=== PATIENT | male | born 1975 ===

== ENCOUNTER 2021-12-16 08:22 | Emergency (ER) | payer BC, SELFPAY ==
[2021-12-16 08:34] VITALS: BP 149/100; PULSE 70; RESP 18; TEMP 36.4; O2SAT 97; BMI 24.4
--- NOTE | 2021-12-16 08:42 | CRLHL7_ITS ---
For Patients: As a result of the Century Cures Act, medical imaging exams and procedure reports are released immediately into your electronic medical record. You may view this report before your referring provider. If you have questions, please contact your health care provider. INDICATION: LLQ PAIN HISTORY: Left lower quadrant abdominal pain. COMPARISON: None. TECHNIQUE: CT of the abdomen and pelvis. 89 cc of Isovue-370 IV. Coronal/sagittal reconstruction images. FINDINGS: Lung bases: There is no pleural or pericardial effusion. The heart size is normal. The lung bases demonstrate a small sliding-type hiatal hernia. There is no basilar pneumothorax. No suspicious pulmonary nodule in either lung base. Abdomen/pelvis: The liver morphology is normal. There is no solid hepatic mass or perihepatic ascites. No inflammatory changes adjacent to the gallbladder. Spleen size is normal. Calcified splenic granulomas are noted. No adrenal mass. No pancreatic mass or glandular atrophy. There is mild left hydronephrosis and hydroureter. 2 mm stone in the left kidney in image 50, series 2. There is a stone present at the left UVJ. This is seen on image 134, series 2. This measures 2 mm. No additional urolith is identified. The prostate and urinary bladder otherwise normal. There is no mural thickening in the small bowel or colon. No perienteric edema. No transition point. No evidence for appendicitis. No inguinal or pelvic sidewall lymphadenopathy. The retroperitoneum and gastrohepatic ligament are normal. Visceral artery branches are patent. IVC is patent. The bone windows demonstrate no suspicious bone lesions. Vertebral body heights are maintained on sagittal reconstruction images. IMPRESSION: 1. 2 mm stone at the left UVJ, with mild left hydronephrosis/hydroureter. 2. No additional acute findings are demonstrated. 3. Report called to Dr. Matias, ED, 12/16/21, 1049 am. Dictated by Galileo Cruz MD @ 12/16/2021 10:49:29 AM Please note that all CT scans at this facility use dose modulation, iterative reconstruction, and/or weight-based dosing when appropriate to reduce radiation dose to as low as reasonably achievable. Dictated by: Galileo Cruz MD @ 12/16/2021 10:49:37 (Electronically Signed)
--- NOTE | 2021-12-16 08:43 | ED.GENADULT ---
HPI - General Adult General Chief complaint: Abdominal Pain Stated complaint: VOMITTING/ABDOMINAL PAIN Time Seen by Provider: 12/16/21 08:32 History of Present Illness HPI narrative: This 46-year-old male comes in reporting left lower quadrant abdominal pain that began last evening. He states that it is a constant pain. He has nausea with vomiting. He does not report any fevers. He states the pain is 9/10 in severity. He did have some marijuana last evening. He does not report any altered bowel function or blood in the toilet. He states that he did take a laxative thinking that this may help his symptoms. He has not had any results from that treatment yet. Related Data Home Medications Medication Instructions Recorded Confirmed alprazolam 0.25 mg tablet mg 12/16/21 bupropion HCl 150 mg 24 hr tablet, mg PO 12/16/21 extended release Previous Rx's Medication Instructions Recorded hydrocodone 5 mg-acetaminophen 325 1 tab PO Q4-6H PRN pain #15 tabs 12/16/21 mg tablet ketorolac 10 mg tablet 10 mg PO Q8H 5 days #15 tabs 12/16/21 Allergies Allergy/AdvReac Type Severity Reaction Status Date / Time No Known Drug Allergies Allergy Verified 12/16/21 08:34 Review of Systems Status of ROS: Reports: 10 or more systems reviewed and unremarkable except as noted in History and below Narrative: Constitutional: No fevers, no weight gain or loss. Eyes: No discharge. No vision changes. HENT: No congestion, no sore throat, no ear pain. Cardiovascular: No chest pain, no palpitations. Respiratory: No shortness of breath, no wheezes, no cough. Gastrointestinal: No diarrhea. Left lower quadrant abdominal pain with nausea and vomiting. Genitourinary: No dysuria, no hematuria. Musculoskeletal: Normal range of motion. Skin: No rashes, no pruritis. Neurological: No dizziness, weakness, sensory change, speech change. Endo/Heme/Allergies: No bruising or bleeding. No polydipsia. Pysch: no suicidality, no anxiety, no insomnia. All other systems reviewed and are negative. PFSH PFSH Social History Smoking Status: Unknown if ever smoked Do you use any of these nicotine containing products: None How often do you have a drink containing alcohol: 2-4 times a month How often do you have six or more drinks on one occasion: Never AUDIT-C Alcohol total score: 2 Non-prescribed substance use: marijuana (any form) Exam Narrative: Exam Narrative: Constitutional: Well-developed, well-nourished, no acute distress. HEENT: Normocephalic, atraumatic. Neck: Normal range of motion. Nontender. Supple. Heart: Regular. No murmurs. Normal rate. Intact distal pulses. Lungs: Clear to auscultation. No chest discomfort. No wheezes, rhonchi, or rales. Abdomen: Normal bowel sounds. Tenderness in the left lower quadrant. No rebound tenderness. Genitalia: Deferred. Back: No midline tenderness. Normal range of motion. Extremities: Normal range of motion. No injury. Skin: Intact. No rash. Warm. No erythema or pallor. Neurologic: No altered sensation. No weakness. Alert and oriented. Psychiatric: No suicidality. No anxiety or depression. No insomnia. Nursing notes and vitals signs are reviewed. Const: Vital Signs, click to edit/add: Vital Signs - 24 hr 12/16/21 08:34 Temperature 97.6 F Pulse Rate [Left P ulse Oximeter] 70 Respiratory Rate 18 Blood Pressure [Le ft Upper Arm] 149/100 H Pulse Oximetry 97 Oxygen Delivery Me thod Room Air Course Vital Signs Vital signs: Initial Vital Signs Temperature 97.6 F 12/16/21 08:34 Temperature Source Temporal Artery Scan 12/16/21 08:34 Pulse Rate 70 12/16/21 08:34 Respiratory Rate 18 12/16/21 08:34 Blood Pressure 149/100 H 12/16/21 08:34 Blood Pressure Mean 116 12/16/21 08:34 Blood Pressure Position Sitting 12/16/21 08:34 Pulse Oximetry 97 12/16/21 08:34 Oxygen Delivery Method 12/16/21 08:34 Vital Signs Temperature 97.6 F 12/16/21 08:34 Pulse Rate 70 12/16/21 08:34 Respiratory Rate 18 12/16/21 08:34 Blood Pressure 149/100 H 12/16/21 08:34 Pulse Oximetry 97 12/16/21 08:34 Oxygen Delivery Method 12/16/21 08:34 Temperature 97.6 F 12/16/21 08:34 Pulse Rate 70 12/16/21 08:34 Respiratory Rate 18 12/16/21 08:34 Blood Pressure 149/100 H 12/16/21 08:34 Pulse Oximetry 97 12/16/21 08:34 Oxygen Delivery Method 12/16/21 08:34 Medical Decision Making MDM Narrative Medical decision making narrative: This patient comes in with left lower quadrant abdominal pain. He was rather uncomfortable. An IV was established where he received a L of normal saline, 0.5 mg of Dilaudid, and 4 mg of Zofran. This brought great relief to his symptoms. CT scan of the abdomen and pelvis was performed and returns with evidence of a 2 mm stone at the left ureterovesical junction. These results are communicated with the patient along with instructions regarding kidney stones. He is okay to be discharged home and is prescribed Toradol and [place] for additional relief as needed. Lab Data Labs: Lab Results 12/16/21 12/16/21 Range/Units 08:50 08:50 WBC 6.97 (4.50-11.00) K/uL RBC 5.34 (4.30-5.90) m/uL Hgb 15.8 (13.5-17.5) gm/dL Hct 46.5 (37.0-53.0) % MCV 87 (80-100) fL MCH 30 (26-34) pg MCHC 34 (32-36) gm/dL RDW Coeff of Yg 11.2 L (11.5-15.5) % Plt Count 193 (140-440) K/uL Neut % (Auto) 88.9 H (42.0-72.0) % Lymph % (Auto) 6.9 L (20-44) % [place] % (Auto) 3.3 (0.0-11.0) % Eos % (Auto) 0.4 (0.0-7.0) % Baso % (Auto) 0.4 (0.0-3.0) % Neut # (Auto) 6.20 (1.7-7.0) K/uL Lymph # (Auto) 0.50 L (0.90-2.90) K/uL [place] # (Auto) 0.20 (0.00-0.90) K/UL Eos # (Auto) 0.03 (0.00-0.50) K/uL Baso # (Auto) 0.03 (0.00-0.30) K/uL Abs Immat Gran (auto) 0.01 (0.00-0.30) K/uL Sodium 140 (135-149) mmol/L Potassium 4.1 (3.6-5.1) mmol/L Chloride 107 (96-114) mmol/L Carbon Dioxide 28 (20-32) mmol/L BUN 9 (5-24) mg/dL Creatinine 1.2 (0.5-1.5) mg/dL Estimated Creat Clear 83.53 Estimated GFR 75 ml/min Glucose 161 H (60-115) mg/dL Calcium 9.1 (8.4-10.6) mg/dL Imaging Data CT scan - abdomen: Radiologist's impression: 1. 2 mm stone at the left UVJ, with mild left hydronephrosis/hydroureter. 2. No additional acute findings are demonstrated. Discharge Plan Discharge Clinical Impression: Calculus of kidney Patient Disposition: Home, Self-Care Condition: Improved Instructions: Kidney Stones (ED) Additional Instructions: Take medication as needed and indicated. Follow up with MD or return if recurrent or worsening symptoms happen. Prescriptions: New hydrocodone-acetaminophen 5-325 mg tablet 1 tab PO Q4-6H PRN (Reason: pain) Qty: 15 0RF ketorolac 10 mg tablet 10 mg PO Q8H 5 Days Qty: 15 0RF No Action alprazolam 0.25 mg tablet Label Comments: TAKE 1 TABLET BY MOUTH THREE TIMES DAILY bupropion HCl 150 mg tablet extended release 24 hr PO Label Comments: TAKE 1 TABLET BY MOUTH ONCE DAILY Follow Up/Referrals: Provider,Not a Local [Primary Care Provider] - Stand Alone Forms: [employer] Info Instructions
[2021-12-16 09:00] VITALS: BP 137/81; PULSE 51; RESP 18; O2SAT 99
[2021-12-16] MEDS: HYDROmorphone 0.5 mg/0.5 ml inj IVP (09:01)
[2021-12-16] MEDS: 0.9 % SODIUM CHLORIDE 1000 ml 1,000 ML IV (09:02)
[2021-12-16] MEDS: ONDANSETRON 2 MG/ML inj 4 MG IVP (09:02)
[2021-12-16 09:16] LABS: Chloride* 107 mmol/L (96-114); Potassium* 4.1 mmol/L (3.6-5.1); Sodium* 140 mmol/L (135-149)
[2021-12-16 09:19] LABS: Blood Urea Nitrogen* 9 mg/dL (5-24); Carbon Dioxide* 28 mmol/L (20-32); Creatinine* 1.2 mg/dL (0.5-1.5); Est. Creatinine Clearance* 83.53; Estimated Glomerular Filt Rate 75 ml/min; Glucose* 161 mg/dL (60-115)
[2021-12-16 09:20] LABS: Calcium* 9.1 mg/dL (8.4-10.6)
[2021-12-16 09:32] LABS: Basophils Absolute Auto 0.03 K/uL (0.00-0.30); Basophils Percent Auto 0.4 % (0.0-3.0); Eosinophils Absolute Auto 0.03 K/uL (0.00-0.50); Eosinophils Percent Auto 0.4 % (0.0-7.0); Hematocrit 46.5 % (37.0-53.0); Hemoglobin* 15.8 gm/dL (13.5-17.5); Immature Granulocytes Abs Auto 0.01 K/uL (0.00-0.30); Lymphocytes Percent Auto 6.9 % (20-44); Mean Corpuscular HGB Conc 34 gm/dL (32-36); Mean Corpuscular Hemoglobin 30 pg (26-34); Mean Corpuscular Volume 87 fL (80-100); Monocytes Percent Auto 3.3 % (0.0-11.0); Neutrophils Percent Auto 88.9 % (42.0-72.0); Platelet Count* 193 K/uL (140-440); RDW Coefficient of Variation % 11.2 % (11.5-15.5); Red Blood Count 5.34 m/uL (4.30-5.90); White Blood Count* 6.97 K/uL (4.50-11.00)
[2021-12-16 09:34] LABS: Slide Review Reflex No
[2021-12-16 10:00] VITALS: BP 127/70; PULSE 53; RESP 18; O2SAT 96
[2021-12-16 10:30] VITALS: BP 129/74; PULSE 58; RESP 18; O2SAT 97
[2021-12-16 11:00] VITALS: BP 129/77; PULSE 45; RESP 18; O2SAT 99
== END 2021-12-16 12:00 | disposition home or self-care (01) ==
PROVIDERS: Emergency Provider Emergency Medicine Emergency Medical Services
DX: N20.0 Calculus of kidney (principal)
CPT/HCPCS: 36415; 74177; 80048; 85025; 96374; 96375; 99284; J1170; J2405; J7030; Q9967

== ENCOUNTER 2021-12-21 08:33 | Emergency (ER) | payer BC, SELFPAY ==
[2021-12-21 08:51] VITALS: BP 121/77; PULSE 58; RESP 18; TEMP 36.3; O2SAT 96; BMI 24.4
--- NOTE | 2021-12-21 09:18 | ED_ITS ---
HPI - General Adult General Time Seen by Provider: 09:18 Date Seen: 12/21/21 Chief complaint: Nausea/Vomiting Stated complaint: Nausea,hasn't passed kidney stone Time Seen by Provider: 12/21/21 09:12 Source: patient Mode of arrival: ambulatory Limitations: no limitations History of Present Illness HPI narrative: Patient is returning to the ER with a known kidney stone that was 2 mm and at the left ureterovesicular junction. Symptoms started on the evening of December 15 and was seen in the ER on 12/16. He actually was feeling better yesterday and did not take medicine. He had Toradol and Vicodin at home to take. He has not noted any fevers, when he awoke this morning though he had some lower abdominal discomfort and was nauseated again. Again no fevers or chills. No dysuria. He was not sure if he ever passed the stone. Related Data Home Medications Medication Instructions Recorded Confirmed alprazolam 0.25 mg tablet mg 12/16/21 bupropion HCl 150 mg 24 hr tablet, mg PO 12/16/21 extended release Previous Rx's Medication Instructions Recorded hydrocodone 5 mg-acetaminophen 325 1 tab PO Q4-6H PRN pain #15 tabs 12/16/21 mg tablet ketorolac 10 mg tablet 10 mg PO Q8H 5 days #15 tabs 12/16/21 ketorolac 10 mg tablet 10 mg PO Q6H 5 days #20 tabs 12/21/21 ondansetron 4 mg disintegrating 4 mg PO Q6H PRN nausea and 12/21/21 tablet vomiting #20 tabs Allergies Allergy/AdvReac Type Severity Reaction Status Date / Time No Known Drug Allergies Allergy Verified 12/16/21 08:34 Review of Systems Status of ROS: Reports: 10 or more systems reviewed and unremarkable except as noted in History and below PFSH PFSH Social History Smoking Status: Never smoker Do you use any of these nicotine containing products: Vaping Products Second hand tobacco smoke exposure: No How often do you have a drink containing alcohol: monthly or less How many standard drinks containing alcohol do you have on a typical day: 1 or 2 How often do you have six or more drinks on one occasion: Never AUDIT-C Alcohol total score: 1 Non-prescribed substance use: denies use Exam Const: Vital Signs, click to edit/add: Vital Signs - 24 hr 12/21/21 08:51 12/21/21 10:37 Temperature 97.4 F L Pulse Rate [Left P ulse Oximeter] 58 L Respiratory Rate 18 18 Blood Pressure [Le ft Upper Arm] 121/77 128/86 Pulse Oximetry 96 97 Oxygen Delivery Me thod Room Air Documenting provider has reviewed patient's vital signs: yes Common normals: no apparent distress, average body habitus, oriented x3, no gómez itations, healthy appearing and alert General appearance: cooperative, comfortable and well kempt HENMT: Common normals: normocephalic, head/scalp atraumatic, hearing grossly normal bilaterally and external ears normal Head and scalp: normocephalic and atraumatic External ear: external ears normal Eye: Common normals: PERRL, EOMs intact bilaterally, conjunctivae normal and no scleral icterus Conjunctiva: conjunctiva(e) normal Pupil: PERRL Neck & C-Spine: Common normals: full ROM, no lymphadenopathy, supple, no meningeal signs, no JVD and thyroid normal Thyroid: thyroid normal Resp: Common normals: normal respiratory effort, no retractions, no use of accessory muscles and clear to auscultation bilaterally Auscultation: clear to auscultation bilaterally Cardio: Common normals: no JVD, regular rate, regular rhythm, S1 normal heart sound, S2 normal heart sound, no gallops, no clicks and no murmurs Rate: r egular rate Rhythm: regular rhythm Heart sounds: S1 normal and S2 normal GI: Common normals: Normal to inspection, nondistended, normoactive bowel sounds present, soft to palpation, no hepatosplenomegaly and no masses Palpation: soft, tender (Very mildly tender in the suprapubic area, no rebound/guarding) and no hepatosplenomegaly Extremity: Common normals: normal to inspection, full ROM, normal capillary re fill, no joint enlargement, no clubbing, cyanosis or edema, no calf tenderness and no pedal edema Neuro: Common normals: oriented x3 Sensorium/orientation: alert Meningeal signs: no meningeal signs Psych: Appearance: well ket Course Course Hospital Course: Reviewed with patient and his that we will establish an IV, start some IV fluids and give IV Toradol and Zofran. We will recheck labs including urinalysis. Did discuss that sometimes stone size can be difficult to interpret on CT, it is possibly larger than on initial estimate. There can be complications such as development of urinary tract infection. It is possible stone is now in the bladder and causing some irritation. We will see with initial labs show and need to consider reimaging. They understand and are in agreement. Reevaluation(s) Reevaluation #1: Provided patient a copy of his CT. We did review that there are stones up within the kidneys, recommended fluids to keep urine clear looking, could add lemon to the water. He at this point could have irritation the bladder from stone passing through. We certainly do not see evidence of the stone obstructing any longer. Time: 12:40 Vital Signs Vital signs: Initial Vital Signs Temperature 97.4 F L 12/21/21 08:51 Temperature Source Temporal Artery Scan 12/21/21 08:51 Pulse Rate 58 L 12/21/21 08:51 Pulse Rhythm 12/21/21 08:51 Respiratory Rate 18 12/21/21 08:51 Blood Pressure 121/77 12/21/21 08:51 Blood Pressure Mean 91 12/21/21 08:51 Blood Pressure Position Sitting 12/21/21 08:51 Pulse Oximetry 96 12/21/21 08:51 Vital Signs Temperature 97.4 F L 12/21/21 08:51 Pulse Rate 58 L 12/21/21 08:51 Respiratory Rate 18 12/21/21 08:51 Blood Pressure 121/77 12/21/21 08:51 Pulse Oximetry 96 12/21/21 08:51 Temperature 97.4 F L 12/21/21 08:51 Pulse Rate 58 L 12/21/21 08:51 Respiratory Rate 18 12/21/21 10:37 Blood Pressure 128/86 12/21/21 10:37 Pulse Oximetry 97 12/21/21 10:37 Oxygen Delivery Method 12/21/21 10:37 Medical Decision Making Lab Data Lab results reviewed: Yes I reviewed the patient's lab results Labs: Lab Results 12/21/21 12/21/21 12/21/21 Range/Units 09:30 09:35 09:35 WBC 5.31 (4.50-11.00) K/uL RBC 5.41 (4.30-5.90) m/uL Hgb 15.8 (13.5-17.5) gm/dL Hct 47.3 (37.0-53.0) % MCV 87 (80-100) fL MCH 29 (26-34) pg MCHC 33 (32-36) gm/dL RDW Coeff of Yg 11.2 L (11.5-15.5) % Plt Count 188 (140-440) K/uL Neut % (Auto) 64.6 (42.0-72.0) % Lymph % (Auto) 25.0 (20-44) % [place] % (Auto) 7.2 (0.0-11.0) % Eos % (Auto) 2.1 (0.0-7.0) % Baso % (Auto) 0.9 (0.0-3.0) % Neut # (Auto) 3.43 (1.7-7.0) K/uL Lymph # (Auto) 1.33 (0.90-2.90) K/uL [place] # (Auto) 0.40 (0.00-0.90) K/UL Eos # (Auto) 0.11 (0.00-0.50) K/uL Baso # (Auto) 0.05 (0.00-0.30) K/uL Abs Immat Gran (auto) 0.01 (0.00-0.30) K/uL Sodium 141 (135-149) mmol/L Potassium 4.6 (3.6-5.1) mmol/L Chloride 103 (96-114) mmol/L Carbon Dioxide 29 (20-32) mmol/L BUN 17 (5-24) mg/dL Creatinine 0.9 (0.5-1.5) mg/dL Estimated Creat Clear 111.37 Estimated GFR 106 ml/min Glucose 68 (60-115) mg/dL Lactate (0.5-1.9) mmol/L Calcium 9.2 (8.4-10.6) mg/dL Urine Color Yellow (Yellow) Urine Appearance Clear (Clear) Urine pH 6.0 (5.0-8.5) Ur Specific [place] >= 1.030 (1.000-1.030) Urine Protein Negative (Negative) Urine Glucose (UA) Negative (Negative) Urine Ketones Trace A (Negative) Urine Blood 1+ A (Negative) Urine Nitrite Negative (Negative) Urine Bilirubin Negative (Negative) Urine Urobilinogen 1.0 (0.2-1.0) Ur Leukocyte Esterase Negative (Negative) Urine RBC 0-2 (0-2) Urine WBC 0-2 (0-5) Ur Squamous Epith Cells Few (None-Few) Urine Bacteria None (None) 12/21/21 Range/Units 09:35 WBC (4.50-11.00) K/uL RBC (4.30-5.90) m/uL Hgb (13.5-17.5) gm/dL Hct (37.0-53.0) % MCV (80-100) fL MCH (26-34) pg MCHC (32-36) gm/dL RDW Coeff of Yg (11.5-15.5) % Plt Count (140-440) K/uL Neut % (Auto) (42.0-72.0) % Lymph % (Auto) (20-44) % [place] % (Auto) (0.0-11.0) % Eos % (Auto) (0.0-7.0) % Baso % (Auto) (0.0-3.0) % Neut # (Auto) (1.7-7.0) K/uL Lymph # (Auto) (0.90-2.90) K/uL [place] # (Auto) (0.00-0.90) K/UL Eos # (Auto) (0.00-0.50) K/uL Baso # (Auto) (0.00-0.30) K/uL Abs Immat Gran (auto) (0.00-0.30) K/uL Sodium (135-149) mmol/L Potassium (3.6-5.1) mmol/L Chloride (96-114) mmol/L Carbon Dioxide (20-32) mmol/L BUN (5-24) mg/dL Creatinine (0.5-1.5) mg/dL Estimated Creat Clear Estimated GFR ml/min Glucose (60-115) mg/dL Lactate 1.4 (0.5-1.9) mmol/L Calcium (8.4-10.6) mg/dL Urine Color (Yellow) Urine Appearance (Clear) Urine pH (5.0-8.5) Ur Specific [place] (1.000-1.030) Urine Protein (Negative) Urine Glucose (UA) (Negative) Urine Ketones (Negative) Urine Blood (Negative) Urine Nitrite (Negative) Urine Bilirubin (Negative) Urine Urobilinogen (0.2-1.0) Ur Leukocyte Esterase (Negative) Urine RBC (0-2) Urine WBC (0-5) Ur Squamous Epith Cells (None-Few) Urine Bacteria (None) Imaging Data CT scan - abdomen: Attestation: I have reviewed the pertinent imaging results. Radiologist's impression: Patient: PITER HOFF Facility:?[facility] Patient ID:?[id number] Site Patient ID:?[id number]. Site :?[id number] Study:?CT Abdomen/Pelvis w/o-12/21/2021 11:17:36 AM Ordering Physician:Sabina Card Final Report: Indication: LT kidney stone, inc pain Technique: Noncontrast CT abdomen and pelvis Please note that all CT scans at this facility use dose modulation, iterative reconstruction, and/or weight-based dosing when appropriate to reduce radiation dose to as low as reasonably achievable. Comparison: 12/16/2021 Findings: Mild linear subsegmental atelectasis noted in both lower lobes. No pleural effusion. Noncontrast enhanced liver is normal. Gallbladder is unremarkable. No calcified gallstones or biliary obstruction. Pancreas normal. Calcified granulomas in the spleen. Adrenal glands normal. Small nonobstructing stones left kidney measuring 2-3 millimeters. Punctate 1-2 millimeter stones in the right kidney are also noted without obstruction. The ureters are clear bilaterally. Interval clearing of previously noted left UVJ stone. No bowel obstruction or free intraperitoneal air. Mild sigmoid diverticulosis. No abscess. The appendix is normal. Osseous structures are normal. No fracture. Impression: Punctate nonobstructing stones within each kidney. Interval clearing of previously noted left UVJ stone. Please note that all CT scans at this facility use dose modulation, iterative reconstruction, and/or weight-based dosing when appropriate to reduce radiation dose to as low as reasonably achievable. Dictated by Cordell Ardon MD @ 12/21/2021 11:56:23 AM (Electronic Signature) Critical Care Time Critical Care Time Critical Care Time: No Discharge Plan Discharge Clinical Impression: Bilateral nephrolithiasis, Nausea Condition: Stable Instructions: Kidney Stones (ED), Renal Colic (ED) Additional Instructions: Push fluids for clear looking urine, can add lemon to water to help in prevention of kidney stones. Can use Toradol if needed for pain control, Zofran for nausea. If your symptoms are not improving over the next couple days, do need to seek re-evaluation. If at any point you develop severe abdominal pain, have associated vomiting or fever with it, do need to be seen in the ER. Activity Level: Activity as Tolerated Prescriptions: New ondansetron 4 mg tablet,disintegrating 4 mg PO Q6H PRN (Reason: nausea and vomiting) Qty: 20 0RF ketorolac 10 mg tablet 10 mg PO Q6H 5 Days Qty: 20 0RF No Action alprazolam 0.25 mg tablet Label Comments: TAKE 1 TABLET BY MOUTH THREE TIMES DAILY bupropion HCl 150 mg tablet extended release 24 hr PO Label Comments: TAKE 1 TABLET BY MOUTH ONCE DAILY hydrocodone-acetaminophen 5-325 mg tablet 1 tab PO Q4-6H PRN (Reason: pain) Qty: 15 0RF ketorolac 10 mg tablet 10 mg PO Q8H 5 Days Qty: 15 0RF Follow Up/Referrals: Provider,Not a Local [Primary Care Provider] - Stand Alone Forms: [facility] Info Instructions
[2021-12-21 09:40] LABS: Appearance Urine Clear (Clear); Bilirubin Urine Negative (Negative); Blood Urine 1+ (Negative); Color Urine Yellow (Yellow); Glucose Urine Negative (Negative); Ketones Urine Trace (Negative); Leukocyte Esterase Urine Negative (Negative); Nitrite Urine Negative (Negative); Protein Urine Negative (Negative); Specific Gravity Urine >= 1.030 (1.000-1.030)
[2021-12-21] MEDS: KETOROLAC 30 MG/ML inj IVP (09:41)
[2021-12-21] MEDS: 0.9 % SODIUM CHLORIDE 1000 ml 1,000 ML IV (09:43)
[2021-12-21] MEDS: ONDANSETRON 2 MG/ML inj 4 MG IVP (09:44)
[2021-12-21 09:47] LABS: RBC Urine 0-2 (0-2); Squamous Epithelial Cell Urine Few (None-Few); WBC Urine 0-2 (0-5)
[2021-12-21 09:53] LABS: Lactate* 1.4 mmol/L (0.5-1.9)
[2021-12-21 09:54] LABS: Basophils Absolute Auto 0.05 K/uL (0.00-0.30); Basophils Percent Auto 0.9 % (0.0-3.0); Eosinophils Absolute Auto 0.11 K/uL (0.00-0.50); Eosinophils Percent Auto 2.1 % (0.0-7.0); Hematocrit 47.3 % (37.0-53.0); Hemoglobin* 15.8 gm/dL (13.5-17.5); Immature Granulocytes Abs Auto 0.01 K/uL (0.00-0.30); Lymphocytes Absolute Auto 1.33 K/uL (0.90-2.90); Mean Corpuscular HGB Conc 33 gm/dL (32-36); Mean Corpuscular Hemoglobin 29 pg (26-34); Mean Corpuscular Volume 87 fL (80-100); Monocytes Percent Auto 7.2 % (0.0-11.0); Neutrophils Absolute Auto 3.43 K/uL (1.7-7.0); Neutrophils Percent Auto 64.6 % (42.0-72.0); Platelet Count* 188 K/uL (140-440); RDW Coefficient of Variation % 11.2 % (11.5-15.5); Red Blood Count 5.41 m/uL (4.30-5.90); White Blood Count* 5.31 K/uL (4.50-11.00)
[2021-12-21 09:55] LABS: Slide Review Reflex No
[2021-12-21 10:08] LABS: Chloride* 103 mmol/L (96-114)
[2021-12-21 10:09] LABS: Potassium* 4.6 mmol/L (3.6-5.1); Sodium* 141 mmol/L (135-149)
[2021-12-21 10:11] LABS: Creatinine* 0.9 mg/dL (0.5-1.5); Est. Creatinine Clearance* 111.37; Estimated Glomerular Filt Rate 106 ml/min
[2021-12-21 10:12] LABS: Blood Urea Nitrogen* 17 mg/dL (5-24); Calcium* 9.2 mg/dL (8.4-10.6); Carbon Dioxide* 29 mmol/L (20-32); Glucose* 68 mg/dL (60-115)
--- NOTE | 2021-12-21 10:32 | CRLHL7_ITS ---
For Patients: As a result of the Century Cures Act, medical imaging exams and procedure reports are released immediately into your electronic medical record. You may view this report before your referring provider. If you have questions, please contact your health care provider. Indication: LT kidney stone, inc pain Technique: Noncontrast CT abdomen and pelvis Please note that all CT scans at this facility use dose modulation, iterative reconstruction, and/or weight-based dosing when appropriate to reduce radiation dose to as low as reasonably achievable. Comparison: 12/16/2021 Findings: Mild linear subsegmental atelectasis noted in both lower lobes. No pleural effusion. Noncontrast enhanced liver is normal. Gallbladder is unremarkable. No calcified gallstones or biliary obstruction. Pancreas normal. Calcified granulomas in the spleen. Adrenal glands normal. Small nonobstructing stones left kidney measuring 2-3 millimeters. Punctate 1-2 millimeter stones in the right kidney are also noted without obstruction. The ureters are clear bilaterally. Interval clearing of previously noted left UVJ stone. No bowel obstruction or free intraperitoneal air. Mild sigmoid diverticulosis. No abscess. The appendix is normal. Osseous structures are normal. No fracture. Impression: Punctate nonobstructing stones within each kidney. Interval clearing of previously noted left UVJ stone. Please note that all CT scans at this facility use dose modulation, iterative reconstruction, and/or weight-based dosing when appropriate to reduce radiation dose to as low as reasonably achievable. Dictated by Cordell Ardon MD @ 12/21/2021 11:56:23 AM (Electronically Signed)
[2021-12-21 10:37] VITALS: BP 128/86; RESP 18; O2SAT 97
[2021-12-21 13:13] VITALS: BP 128/89; PULSE 57; RESP 16; TEMP 36.4; O2SAT 95
== END 2021-12-21 13:15 | disposition home or self-care (01) ==
PROVIDERS: Emergency Provider Family Medicine
DX: N20.0 Calculus of kidney (principal)
CPT/HCPCS: 36415; 74176; 80048; 81001; 83605; 85025; 96374; 96375; 99284; J1885; J2405; J7030

== ENCOUNTER 2022-05-16 07:29 | Emergency (ER) | payer BC, SELFPAY ==
[2022-05-16 07:38] VITALS: BP 100/69; PULSE 73; RESP 18; TEMP 36.7; O2SAT 98; BMI 25.1
--- NOTE | 2022-05-16 07:42 | CRLHL7_ITS ---
For Patients: As a result of the 21st Century Cures Act, medical imaging exams and procedure reports are released immediately into your electronic medical record. You may view this report before your referring provider. If you have questions, please contact your health care provider. INDICATION: Lower abdominal pain with history of urolithiasis. COMPARISON: December 21, 2021 TECHNIQUE: CT examination of the abdomen and pelvis was performed without intravenous contrast. Thin section axial images were obtained from the lung bases through the pubic symphysis. Oral contrast was not administered. Please note that all CT scans at this facility use dose modulation, iterative reconstruction, and/or weight-based dosing when appropriate to reduce radiation dose to as low as reasonably achievable. FINDINGS: LUNG BASES: The lung bases are unremarkable.The heart size is normal and the lung bases. There is a small hiatal hernia LIVER/BILIARY SYSTEM:The liver is normal in size and configuration given the lack of intravenous contrast. There is no visible focal mass and there is no intra- or extra hepatic biliary ductal dilatation.The gall bladder appears normal. ADRENALS: Normal non-contrast appearance KIDNEYS, URETERS and BLADDER:The kidneys are normal in size. Incidental left-sided peripelvic sinus lymphatics cysts. There are intrarenal calculi bilaterally. However, there is no hydronephrosis or hydroureter or calculus within the course of either ureter or within the bladder. Multiple lower abdominal and pelvic calcifications are noted but none of them are within the urinary system and were largely present previously. SPLEEN:Granulomatous calcification PANCREAS: Normal non-contrast appearance. RETROPERITONEUM and MESENTERY: There is no mass, adenopathy or aortic aneurysm. GASTROINTESTINAL SYSTEM: There is no evidence of diverticulitis, colitis, mechanical obstruction, or appendicitis. The small bowel as visualized appears normal.Fecal retention. Scattered diverticulosis. No acute appearing GI finding. PELVIS: No mass, adenopathy or free fluid. OSSEOUS STRUCTURES and ABDOMINAL WALL: There is an age-appropriate appearance of the osseous structures.Very small fat containing umbilical hernia OTHER: No free fluid or free air. IMPRESSION: There is bilateral urolithiasis but there is no indication of acute her current obstructive uropathy. No specific visible cause for acute pain on the current examination. Please note that all CT scans at this facility use dose modulation, iterative reconstruction, and/or weight-based dosing when appropriate to reduce radiation dose to as low as reasonably achievable. Dictated by Valente Obregon MD @ 05/16/2022 8:54:32 AM (Electronically Signed)
--- NOTE | 2022-05-16 07:43 | ED_ITS ---
HPI - Abdominal Pain General Date Seen: 05/16/22 <Gregory Keys MD - Last Filed: 05/16/22 09:45> Chief Complaint: Abdominal Pain <Gregory Keys MD - Last Filed: 05/16/22 09:45> Stated Complaint: Possible kidney stones <Gregory Keys MD - Last Filed: 05/16/22 09:45> Time Seen by Provider: 05/16/22 07:41 <Gregory Keys MD - Last Filed: 05/16/22 09:45> Source: patient and family <Gregory Keys MD - Last Filed: 05/16/22 09:45> Mode of arrival: ambulatory <Gregory Keys MD - Last Filed: 05/16/22 09:45> Limitations: no limitations <Gregory Keys MD - Last Filed: 05/16/22 09:45> History of Present Illness HPI narrative: patient is a 39-year-old gentleman who presents here with a 2-3 day history of lower abdominal pain, sweatiness, couple episodes of diarrhea. He says this is somewhat characteristic of his previous bout with the kidney stones, he has never had back pain associated with this, no documented fever, he does note overall he feels block, there is no history of sore throat coughing, chest pain, rashes, he is immunized for COVID with all the immunizations, but is not immunized for influenza. Denies dysuria frequency, no recent travel history, did really take any me dications at home, presents here with his . Does have a history of the previous urolithiasis, he was able to pass this on his own, history of also inguinal hernia repair with mesh. <Gregory Keys MD - Last Filed: 05/16/22 09:45> MD elicited complaint: abdominal pain <Gregory Keys MD - Last Filed: 05/16/22 09:45> Pertinent past history: kidney stones <Gregory Keys MD - Last Filed: 05/16/22 09:45> Quality: cramping, stabbing and aching <Gregory Keys MD - Last Filed: 05/16/22 09:45> Radiation: none <Gregory Keys MD - Last Filed: 05/16/22 09:45> Migration to: periumbilical <Gregory Keys MD - Last Filed: 05/16/22 09:45> Exacerbating factors: eating <Gregory Keys MD - Last Filed: 05/16/22 09:45> Relieving factors: nothing <Gregory Keys MD - Last Filed: 05/16/22 09:45> Context: history of similar episodes <Gregory Keys MD - Last Filed: 05/16/22 09:45> Associated symptoms: nausea and diarrhea <Gregory Keys MD - Last Filed: 05/16/22 09:45> Related Data Home Medications: Home Medications Medication Instructions Recorded Confirmed alprazolam 0.25 mg tablet mg 12/16/21 bupropion HCl 150 mg 24 hr tablet, mg PO 12/16/21 extended release Previous Rx's Medication Instructions Recorded hydrocodone 5 mg-acetaminophen 325 1 tab PO Q4-6H PRN pain #15 tabs 12/16/21 mg tablet ketorolac 10 mg tablet 10 mg PO Q8H 5 days #15 tabs 12/16/21 ketorolac 10 mg tablet 10 mg PO Q6H 5 days #20 tabs 12/21/21 ondansetron 4 mg disintegrating 4 mg PO Q6H PRN nausea and 12/21/21 tablet vomiting #20 tabs <Gregory Keys MD - Last Filed: 05/16/22 09:45> Allergies/Adverse Reactions: Allergies Allergy/AdvReac Type Severity Reaction Status Date / Time No Known Drug Allergies Allergy Verified 12/16/21 08:34 <Gregory Keys MD - Last Filed: 05/16/22 09:45> Review of Systems Status of ROS Reports: 10 or more systems reviewed and unremarkable except as noted in History and below <Gregory Keys MD - Last Filed: 05/16/22 09:45> PFSH PFSH Social History: Social History Smoking Status: Never smoker Do you use any of these nicotine containing products: Vaping Products Second hand tobacco smoke exposure: No How often do you have a drink containing alcohol: monthly or less How many standard drinks containing alcohol do you have on a typical day: 1 or 2 How often do you have six or more drinks on one occasion: Never AUDIT-C Alcohol total score: 1 Non-prescribed substance use: denies use <Gregory Keys MD - Last Filed: 05/16/22 09:45> Exam Narrative: Exam Narrative: Patient is seen in room 5, he is accompanied by his , pupils are equal round reactive to light, there is no scleral icterus or redness, TMs are normal oropharynx is normal, neck is supple full range of motion hydration status is normal, his chest is good air entry bilaterally with no wheezing crackles noted, no signs of respiratory distress, and his heart sounds S1-S2 are normal there is no S3-S4 clicks murmurs or gallops, abdomen is scaphoid, he has some mild tenderness noted in his lower abdominal regions left greater than right. And around the periumbilical region there is no masses, no hernias, and no organomegaly. No CVA tenderness, he moves all extremities independently and well. Skin reveals no petechiae or rashes <Gregory Keys MD - Last Filed: 05/16/22 09:45> Const: Vital Signs, click to edit/add: Vital Signs - 24 hr 05/16/22 07:38 Temperature 98.0 F Pulse Rate [Right Pulse Oximeter] 73 Respiratory Rate 18 Blood Pressure [Ri ght Upper Arm] 100/69 Pulse Oximetry 98 Oxygen Delivery Me thod Room Air <Gregory Keys MD - Last Filed: 05/16/22 09:45> Vital Signs, click to edit/add: Vital Signs - 24 hr 05/16/22 07:38 Temperature 98.0 F Pulse Rate [Right Pulse Oximeter] 73 Respiratory Rate 18 Blood Pressure [Ri ght Upper Arm] 100/69 Pulse Oximetry 98 Oxygen Delivery Me thod Room Air <Michele Somers MD - Last Filed: 05/16/22 09:35> Course Course Hospital Course: discussed the patient and his , I think a IV, fluids, CT scan, along with the medications Toradol Zofran and morphine IV, keeping him NPO and looking further into this, I am a little less likely to say that this is really from urolithiasis given his somewhat different presentation but he tells me this was similar to his previous 1. I will sign him over to the oncoming emergency room physician, for further treatment delineation and review of the lab /Radiology tests. <Gregory Keys MD - Last Filed: 05/16/22 09:45> Reevaluation(s) Reevaluation #1: Work up shows chronic non obstructing stones in both kidneys, no hydronephrosis. Labs unremarkable with mild WBCs in urine with contamination also noted. <Michele Somers MD - Last Filed: 05/16/22 09:35> Time: 09:29 <Michele Somers MD - Last Filed: 05/16/22 09:35> Vital Signs Vital signs: Initial Vital Signs Temperature 98.0 F 05/16/22 07:38 Temperature Source Temporal Artery Scan 05/16/22 07:38 Pulse Rate 73 05/16/22 07:38 Respiratory Rate 18 05/16/22 07:38 Blood Pressure 100/69 05/16/22 07:38 Blood Pressure Mean 79 05/16/22 07:38 Blood Pressure Position Sitting 05/16/22 07:38 Pulse Oximetry 98 05/16/22 07:38 Oxygen Delivery Method 05/16/22 07:38 Vital Signs Temperature 98.0 F 05/16/22 07:38 Pulse Rate 73 05/16/22 07:38 Respiratory Rate 18 05/16/22 07:38 Blood Pressure 100/69 05/16/22 07:38 Pulse Oximetry 98 05/16/22 07:38 Oxygen Delivery Method 05/16/22 07:38 Temperature 98.0 F 05/16/22 07:38 Pulse Rate 73 05/16/22 07:38 Respiratory Rate 18 05/16/22 07:38 Blood Pressure 100/69 05/16/22 07:38 Pulse Oximetry 98 05/16/22 07:38 Oxygen Delivery Method 05/16/22 07:38 <Gregory Keys MD - Last Filed: 05/16/22 09:45> Initial Vital Signs Temperature 98.0 F 05/16/22 07:38 Temperature Source Temporal Artery Scan 05/16/22 07:38 Pulse Rate 73 05/16/22 07:38 Respiratory Rate 18 05/16/22 07:38 Blood Pressure 100/69 05/16/22 07:38 Blood Pressure Mean 79 05/16/22 07:38 Blood Pressure Position Sitting 05/16/22 07:38 Pulse Oximetry 98 05/16/22 07:38 Oxygen Delivery Method 05/16/22 07:38 Vital Signs Temperature 98.0 F 05/16/22 07:38 Pulse Rate 73 05/16/22 07:38 Respiratory Rate 18 05/16/22 07:38 Blood Pressure 100/69 05/16/22 07:38 Pulse Oximetry 98 05/16/22 07:38 Oxygen Delivery Method 05/16/22 07:38 Temperature 98.0 F 05/16/22 07:38 Pulse Rate 73 05/16/22 07:38 Respiratory Rate 18 05/16/22 07:38 Blood Pressure 100/69 05/16/22 07:38 Pulse Oximetry 98 05/16/22 07:38 Oxygen Delivery Method 05/16/22 07:38 <Michele Somers MD - Last Filed: 05/16/22 09:35> MDM - Abdominal Pain MDM Narrative Medical decision making narrative: During this evaluation of this patient I considered multiple differential diagnosis is which included the life-threatening such as appendicitis, aortic aneurysm, mesenteric ischemia, bowel perforation, volvulus, and bowel obstruc tion. Other differential diagnosis is include but are not limited to cholecystitis, pancreatitis, hepatitis, gastritis, GERD, diverticulitis, peptic ulcer disease, pyelonephritis/UTI, renal colic/stone, testicular torsion as well as other acute scrotal processes, inflammatory bowel disease, as well as other etiologies <Gregory Keys MD - Last Filed: 05/16/22 09:45> During this evaluation of this patient I considered multiple differential diagnosis is which included the life-threatening such as appendicitis, aortic aneurysm, mesenteric ischemia, bowel perforation, volvulus, and bowel obstruction. Other differential diagnosis is include but are not limited to cholecystitis, pancreatitis, hepatitis, gastritis, GERD, diverticulitis, peptic ulcer disease, pyelonephritis/UTI, renal colic/stone, testicular torsion as well as other acute scrotal processes, inflammatory bowel disease, as well as other etiologies Work up shows chronic appearing stones in both kidneys. WBC's on contaminated UA. RBC's also present. Blood work is reassuring. Pt appears to have acute on chronic abd pain. Reviewed case with pt's and pt. I feel this is a flare of Irritable Bowel Syndrome. Case explained as well as need for follow up. Will treat with Zofran ODT in the short term with follow up in my clinic. <Michele Somers MD - Last Filed: 05/16/22 09:35> Medical Records Attestation: I reviewed the patient's medical records. <Gregory Keys MD - Last Filed: 05/16/22 09:45> Lab Data Labs: Lab Results 05/16/22 05/16/22 05/16/22 Range/Units 07:42 07:43 07:55 WBC 8.77 (4.50-11.00) K/uL RBC 5.88 (4.30-5.90) m/uL Hgb 17.5 (13.5-17.5) gm/dL Hct 50.5 (37.0-53.0) % MCV 86 (80-100) fL MCH 30 (26-34) pg MCHC 35 (32-36) gm/dL RDW Coeff of Yg 10.8 L (11.5-15.5) % Plt Count 171 (140-440) K/uL Neut % (Auto) 86.5 H (42.0-72.0) % Lymph % (Auto) 5.0 L (20-44) % Person % (Auto) 7.9 (0.0-11.0) % Eos % (Auto) 0.3 (0.0-7.0) % Baso % (Auto) 0.2 (0.0-3.0) % Neut # (Auto) 7.60 H (1.7-7.0) K/uL Lymph # (Auto) 0.40 L (0.90-2.90) K/uL Person # (Auto) 0.70 (0.00-0.90) K/UL Eos # (Auto) 0.03 (0.00-0.50) K/uL Baso # (Auto) 0.02 (0.00-0.30) K/uL Sodium (135-149) mmol/L Potassium (3.6-5.1) mmol/L Chloride (96-114) mmol/L Carbon Dioxide (20-32) mmol/L BUN (5-24) mg/dL Creatinine (0.5-1.5) mg/dL Estimated Creat Clear Estimated GFR ml/min Glucose (60-115) mg/dL Calcium (8.4-10.6) mg/dL Total Bilirubin (0.1-1.5) mg/dL Direct Bilirubin (0.0-0.5) mg/dL AST (12-35) U/L ALT (4-50) U/L Alkaline Phosphatase (40-150) U/L C-Reactive Protein (0.5-1.0) mg/dL Total Protein (6.0-8.3) g/dL Albumin (3.3-5.0) g/dL Lipase (23-300) U/L Urine Color Yellow (Yellow) Urine Appearance Clear (Clear) Urine pH 6.5 (5.0-8.5) Ur Specific [place] 1.025 (1.000-1.030) Urine Protein 1+ A (Negative) Urine Glucose (UA) Negative (Negative) Urine Ketones 3+ A (Negative) Urine Blood 2+ A (Negative) Urine Nitrite Negative (Negative) Urine Bilirubin 1+ A (Negative) Urine Urobilinogen 1.0 (0.2-1.0) Ur Leukocyte Esterase Negative (Negative) Urine RBC 0-2 (0-2) Urine WBC 5-10 A (0-5) Ur Squamous Epith Cells Few (None-Few) Amorphous Sediment Moderate A (None) Urine Bacteria None (None) SARS-CoV-2 (PCR) Negative SARS-CoV-2 (Negative) Influenza Type A (PCR) Negative PCR FLU A (Negative) Influenza Type B (PCR) Negative PCR FLU B (Negative) RSV (PCR) Negative PCR RSV (Negative) 05/16/22 05/16/22 Range/Units 07:55 07:55 WBC (4.50-11.00) K/uL RBC (4.30-5.90) m/uL Hgb (13.5-17.5) gm/dL Hct (37.0-53.0) % MCV (80-100) fL MCH (26-34) pg MCHC (32-36) gm/dL RDW Coeff of Yg (11.5-15.5) % Plt Count (140-440) K/uL Neut % (Auto) (42.0-72.0) % Lymph % (Auto) (20-44) % Person % (Auto) (0.0-11.0) % Eos % (Auto) (0.0-7.0) % Baso % (Auto) (0.0-3.0) % Neut # (Auto) (1.7-7.0) K/uL Lymph # (Auto) (0.90-2.90) K/uL Person # (Auto) (0.00-0.90) K/UL Eos # (Auto) (0.00-0.50) K/uL Baso # (Auto) (0.00-0.30) K/uL Sodium 141 (135-149) mmol/L Potassium 4.1 (3.6-5.1) mmol/L Chloride 104 (96-114) mmol/L Carbon Dioxide 25 (20-32) mmol/L BUN 13 (5-24) mg/dL Creatinine 0.8 (0.5-1.5) mg/dL Estimated Creat Clear 123.94 Estimated GFR 109 ml/min Glucose 127 H (60-115) mg/dL Calcium 9.5 (8.4-10.6) mg/dL Total Bilirubin 1.2 (0.1-1.5) mg/dL Direct Bilirubin 0.2 (0.0-0.5) mg/dL AST 28 (12-35) U/L ALT 22 (4-50) U/L Alkaline Phosphatase 66 (40-150) U/L C-Reactive Protein 1.3 H (0.5-1.0) mg/dL Total Protein 8.0 (6.0-8.3) g/dL Albumin 5.1 H (3.3-5.0) g/dL Lipase 119 (23-300) U/L Urine Color (Yellow) Urine Appearance (Clear) Urine pH (5.0-8.5) Ur Specific [place] (1.000-1.030) Urine Protein (Negative) Urine Glucose (UA) (Negative) Urine Ketones (Negative) Urine Blood (Negative) Urine Nitrite (Negative) Urine Bilirubin (Negative) Urine Urobilinogen (0.2-1.0) Ur Leukocyte Esterase (Negative) Urine RBC (0-2) Urine WBC (0-5) Ur Squamous Epith Cells (None-Few) Amorphous Sediment (None) Urine Bacteria (None) SARS-CoV-2 (PCR) (Negative) Influenza Type A (PCR) (Negative) Influenza Type B (PCR) (Negative) RSV (PCR) (Negative) <Gregory Keys MD - Last Filed: 05/16/22 09:45> Lab Results 05/16/22 05/16/22 05/16/22 Range/Units 07:42 07:43 07:55 WBC 8.77 (4.50-11.00) K/uL RBC 5.88 (4.30-5.90) m/uL Hgb 17.5 (13.5-17.5) gm/dL Hct 50.5 (37.0-53.0) % MCV 86 (80-100) fL MCH 30 (26-34) pg MCHC 35 (32-36) gm/dL RDW Coeff of Yg 10.8 L (11.5-15.5) % Plt Count 171 (140-440) K/uL Neut % (Auto) 86.5 H (42.0-72.0) % Lymph % (Auto) 5.0 L (20-44) % Person % (Auto) 7.9 (0.0-11.0) % Eos % (Auto) 0.3 (0.0-7.0) % Baso % (Auto) 0.2 (0.0-3.0) % Neut # (Auto) 7.60 H (1.7-7.0) K/uL Lymph # (Auto) 0.40 L (0.90-2.90) K/uL Person # (Auto) 0.70 (0.00-0.90) K/UL Eos # (Auto) 0.03 (0.00-0.50) K/uL Baso # (Auto) 0.02 (0.00-0.30) K/uL Sodium (135-149) mmol/L Potassium (3.6-5.1) mmol/L Chloride (96-114) mmol/L Carbon Dioxide (20-32) mmol/L BUN (5-24) mg/dL Creatinine (0.5-1.5) mg/dL Estimated Creat Clear Estimated GFR ml/min Glucose (60-115) mg/dL Calcium (8.4-10.6) mg/dL Total Bilirubin (0.1-1.5) mg/dL Direct Bilirubin (0.0-0.5) mg/dL AST (12-35) U/L ALT (4-50) U/L Alkaline Phosphatase (40-150) U/L C-Reactive Protein (0.5-1.0) mg/dL Total Protein (6.0-8.3) g/dL Albumin (3.3-5.0) g/dL Lipase (23-300) U/L Urine Color Yellow (Yellow) Urine Appearance Clear (Clear) Urine pH 6.5 (5.0-8.5) Ur Specific [place] 1.025 (1.000-1.030) Urine Protein 1+ A (Negative) Urine Glucose (UA) Negative (Negative) Urine Ketones 3+ A (Negative) Urine Blood 2+ A (Negative) Urine Nitrite Negative (Negative) Urine Bilirubin 1+ A (Negative) Urine Urobilinogen 1.0 (0.2-1.0) Ur Leukocyte Esterase Negative (Negative) Urine RBC 0-2 (0-2) Urine WBC 5-10 A (0-5) Ur Squamous Epith Cells Few (None-Few) Amorphous Sediment Moderate A (None) Urine Bacteria None (None) SARS-CoV-2 (PCR) Negative SARS-CoV-2 (Negative) Influenza Type A (PCR) Negative PCR FLU A (Negative) Influenza Type B (PCR) Negative PCR FLU B (Negative) RSV (PCR) Negative PCR RSV (Negative) 05/16/22 05/16/22 Range/Units 07:55 07:55 WBC (4.50-11.00) K/uL RBC (4.30-5.90) m/uL Hgb (13.5-17.5) gm/dL Hct (37.0-53.0) % MCV (80-100) fL MCH (26-34) pg MCHC (32-36) gm/dL RDW Coeff of Yg (11.5-15.5) % Plt Count (140-440) K/uL Neut % (Auto) (42.0-72.0) % Lymph % (Auto) (20-44) % Person % (Auto) (0.0-11.0) % Eos % (Auto) (0.0-7.0) % Baso % (Auto) (0.0-3.0) % Neut # (Auto) (1.7-7.0) K/uL Lymph # (Auto) (0.90-2.90) K/uL Person # (Auto) (0.00-0.90) K/UL Eos # (Auto) (0.00-0.50) K/uL Baso # (Auto) (0.00-0.30) K/uL Sodium 141 (135-149) mmol/L Potassium 4.1 (3.6-5.1) mmol/L Chloride 104 (96-114) mmol/L Carbon Dioxide 25 (20-32) mmol/L BUN 13 (5-24) mg/dL Creatinine 0.8 (0.5-1.5) mg/dL Estimated Creat Clear 123.94 Estimated GFR 109 ml/min Glucose 127 H (60-115) mg/dL Calcium 9.5 (8.4-10.6) mg/dL Total Bilirubin 1.2 (0.1-1.5) mg/dL Direct Bilirubin 0.2 (0.0-0.5) mg/dL AST 28 (12-35) U/L ALT 22 (4-50) U/L Alkaline Phosphatase 66 (40-150) U/L C-Reactive Protein 1.3 H (0.5-1.0) mg/dL Total Protein 8.0 (6.0-8.3) g/dL Albumin 5.1 H (3.3-5.0) g/dL Lipase 119 (23-300) U/L Urine Color (Yellow) Urine Appearance (Clear) Urine pH (5.0-8.5) Ur Specific [place] (1.000-1.030) Urine Protein (Negative) Urine Glucose (UA) (Negative) Urine Ketones (Negative) Urine Blood (Negative) Urine Nitrite (Negative) Urine Bilirubin (Negative) Urine Urobilinogen (0.2-1.0) Ur Leukocyte Esterase (Negative) Urine RBC (0-2) Urine WBC (0-5) Ur Squamous Epith Cells (None-Few) Amorphous Sediment (None) Urine Bacteria (None) SARS-CoV-2 (PCR) (Negative) Influenza Type A (PCR) (Negative) Influenza Type B (PCR) (Negative) RSV (PCR) (Negative) <Michele Somers MD - Last Filed: 05/16/22 09:35> Discharge Plan Discharge Clinical Impression: Abdominal pain <Gregory Keys MD - Last Filed: 05/16/22 09:45> Patient Disposition: Home, Self-Care <Gregory Keys MD - Last Filed: 05/16/22 09:45> Condition: Stable <Gregory Keys MD - Last Filed: 05/16/22 09:45> Instructions: Abdominal Pain (ED) <Gregory Keys MD - Last Filed: 05/16/22 09:45> Additional Instructions: Zofran as needed Follow up with Dr. Somers to begin management of likely Irritable Bowel Syndrome. <Gregory Keys MD - Last Filed: 05/16/22 09:45> Activity Level: No Restrictions <Gregory Keys MD - Last Filed: 05/16/22 09:45> No Restrictions <Michele Somers MD - Last Filed: 05/16/22 09:35> Discharge Diet: Regular <Gregory Keys MD - Last Filed: 05/16/22 09:45> Regular <Michele Somers MD - Last Filed: 05/16/22 09:35> Prescriptions: No Action alprazolam 0.25 mg tablet Label Comments: TAKE 1 TABLET BY MOUTH THREE TIMES DAILY bupropion HCl 150 mg tablet extended release 24 hr PO Label Comments: TAKE 1 TABLET BY MOUTH ONCE DAILY hydrocodone-acetaminophen 5-325 mg tablet 1 tab PO Q4-6H PRN (Reason: pain) Qty: 15 0RF ketorolac 10 mg tablet 10 mg PO Q8H 5 Days Qty: 15 0RF ondansetron 4 mg tablet,disintegrating 4 mg PO Q6H PRN (Reason: nausea and vomiting) Qty: 20 0RF ketorolac 10 mg tablet 10 mg PO Q6H 5 Days Qty: 20 0RF <Gregory Keys MD - Last Filed: 05/16/22 09:45> Follow Up/Referrals: Provider,Not a Local [Primary Care Provider] - <Gregory Keys MD - Last Filed: 05/16/22 09:45> Stand Alone Forms: MyHealth Info Instructions <Gregory Keys MD - Last Filed: 05/16/22 09:45>
[2022-05-16 08:06] LABS: Basophils Absolute Auto 0.02 K/uL (0.00-0.30); Basophils Percent Auto 0.2 % (0.0-3.0); Eosinophils Absolute Auto 0.03 K/uL (0.00-0.50); Eosinophils Percent Auto 0.3 % (0.0-7.0); Hematocrit 50.5 % (37.0-53.0); Hemoglobin* 17.5 gm/dL (13.5-17.5); Immature Granulocytes Abs Auto 0.01 K/uL (0.00-0.30); Immature Granulocytes Pct Auto 0.1 %; Mean Corpuscular HGB Conc 35 gm/dL (32-36); Mean Corpuscular Hemoglobin 30 pg (26-34); Mean Corpuscular Volume 86 fL (80-100); Monocytes Percent Auto 7.9 % (0.0-11.0); Neutrophils Percent Auto 86.5 % (42.0-72.0); Platelet Count* 171 K/uL (140-440); RDW Coefficient of Variation % 10.8 % (11.5-15.5); Red Blood Count 5.88 m/uL (4.30-5.90); White Blood Count* 8.77 K/uL (4.50-11.00)
[2022-05-16 08:07] LABS: Appearance Urine Clear (Clear); Bilirubin Urine 1+ (Negative); Blood Urine 2+ (Negative); Color Urine Yellow (Yellow); Glucose Urine Negative (Negative); Ketones Urine 3+ (Negative); Leukocyte Esterase Urine Negative (Negative); Nitrite Urine Negative (Negative); Protein Urine 1+ (Negative); Specific Gravity Urine 1.025 (1.000-1.030); pH Urine 6.5 (5.0-8.5)
[2022-05-16 08:08] LABS: Slide Review Reflex No
[2022-05-16] MEDS: 0.9 % SODIUM CHLORIDE 1000 ml 1,000 ML IV (08:08)
[2022-05-16] MEDS: ONDANSETRON 2 MG/ML inj 4 MG IVP (08:09)
[2022-05-16] MEDS: MORPHINE 4 MG/ML INJ IVP (08:09)
[2022-05-16] MEDS: KETOROLAC 30 MG/ML inj IVP (08:09)
[2022-05-16 08:18] LABS: Amorphous Sediment Urine Moderate; RBC Urine 0-2 (0-2); Squamous Epithelial Cell Urine Few (None-Few)
[2022-05-16 08:20] LABS: Chloride* 104 mmol/L (96-114)
[2022-05-16 08:21] LABS: Potassium* 4.1 mmol/L (3.6-5.1); Sodium* 141 mmol/L (135-149)
[2022-05-16 08:22] LABS: Albumin* 5.1 g/dL (3.3-5.0)
[2022-05-16 08:23] LABS: Carbon Dioxide* 25 mmol/L (20-32); Creatinine* 0.8 mg/dL (0.5-1.5); Est. Creatinine Clearance* 123.94; Estimated Glomerular Filt Rate 109 ml/min; Lipase* 119 U/L (23-300)
[2022-05-16 08:24] LABS: Blood Urea Nitrogen* 13 mg/dL (5-24); Calcium* 9.5 mg/dL (8.4-10.6); Glucose* 127 mg/dL (60-115)
[2022-05-16 08:25] LABS: Alanine Aminotransferase* 22 U/L (4-50); Alkaline Phosphatase* 66 U/L (40-150); Aspartate Amino Transferase* 28 U/L (12-35); Bilirubin Direct* 0.2 mg/dL (0.0-0.5); Bilirubin Total* 1.2 mg/dL (0.1-1.5)
[2022-05-16 08:27] LABS: C Reactive Protein* 1.3 mg/dL (0.5-1.0)
[2022-05-16 08:47] LABS: PCR FLU A Negative PCR FLU A (Negative); PCR FLU B Negative PCR FLU B (Negative); PCR RSV Negative PCR RSV (Negative)
[2022-05-16 08:49] LABS: SARS PCR* Negative SARS-CoV-2 (Negative)
[2022-05-16 09:00] VITALS: BP 129/77; PULSE 73; RESP 18; O2SAT 95
== END 2022-05-16 10:18 | disposition home or self-care (01) ==
PROVIDERS: Family Medicine; Emergency Provider Internal Medicine
DX: R10.30 Lower abdominal pain, unspecified (principal)
CPT/HCPCS: 36415; 74176; 80048; 80076; 81001; 83690; 85025; 86140; 87086; 87502; 87634; 87635; 96374; 96375; 99284; J1885; J2270; J2405; J7030

== ENCOUNTER 2023-11-05 07:32 | Outpatient (CLI) | payer BC, SELFPAY ==
--- OUTSIDE RECORDS SUMMARY | 2023-11-07 09:41 | XMS_ITS | Clinical Summary ---
Author Organization [employer] [facility] Address [place], [place] [address] Care Team Providers Care Entertainment Production Professional Name Role Phone Melinda Landin Primary Care Provider Allergies Active Allergy Reactions Criticality Noted Date Comments House Dust Runny Nose Low 08/01/2021 Sneezing. Medications Medication Sig Dispensed Refills Start Date End Date Status cetirizine (ZYRTEC) 10 mg tablet Take 1 tablet by mouth once daily. 0 0 Active triamcinolone 0.5% (ARISTOCORT) 0.5 % creamIndications:Other eczema Apply topically to affected area(s) 3 times daily. 15 g 0 Active Additional Information Patient taking differently:TopicalTID PRN, Reported on 08/01/2021 montelukast (SINGULAIR) 10 mg tabletIndications:Allerg ic rhinoconjunctivitis Take 1 tablet by mouth at bedtime. 90 tablet 1 0 Active ALPRAZolam (XANAX) 0.25 mg tabletIndications:Panic attack Take 1 Tablet (0.25 mg) by mouth 3 times daily. 15 Tablet 2 Active QUEtiapine (SEROqueL) 50 mg tabletIndications:Anxiet y disorder, unspecified type Take 1 Tablet (50 mg) by mouth every 6 hours if needed (Anxiety). 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 90 Tablet 2 Active prazosin (MINIPRESS) 1 mg capsuleIndications:Depre ssion with anxiety,Adjustment disorder, unspecified type Take 1 Capsule (1 mg) by mouth 2 times daily. may take BID PRN, once in daytime for anxiety and once at bedtime for sleep. 60 Capsule 2 2 Active Active Problems Problem Noted Date Diagnosed Date Depression with anxiety 05/01/2014 Right inguinal hernia Posttraumatic stress disorder Obsessive-compulsive disorder Sleepwalking Resolved Problems Problem Noted Date Diagnosed Date Resolved Date Somnambulism 08/26/2017 02/11/2019 Immunizations Name Administration Dates Next Due COVID-19 vaccine (Moderna 100mcg/0.5mL) PF, MDV 01/19/2021,12/22/2020 MMR 07/20/1991 Polio Virus, Unspecified 11/21/1976 Td, Preservative Free (age >= 7 Years) 5 Tdap 08/10/2004 Family History Medical History Relation Name Comments Diabetes Brother Diabetes Father Heart Disease Father [place]; CAD Heart Disease Mother Rare heart dis ease (not genetic) Relation Name Status Comments Brother Alive Father (Age 62) Mother (Age 52) Rare heart condition (not genetic) Sister Alive Social History Tobacco Use Types Packs/Day Years Used Date Smoking Tobacco: Never Smokeless Tobacco: Never Tobacco Cessation:Counseling Given: Yes Alcohol Use Standard Drinks/Week Comments No 0 (1 standard drink = 0.6 oz pur e alcohol) PHQ-2 Answer Date Recorded PHQ-2 TOTAL SCORE 4 09/03/2021 Social Connections Answer Date Recorded Frequency of Communication with Friends and Fami ly Not on file 05/12/2021 Financial Resource Strain Answer Date R ecorded Difficulty of Paying Living Expenses Not on file 05/12/2021 Difficulty of Paying Living Expenses Not on file 05/12/2021 Sex and Gender Information Value Date Recorded Sex Assigned at Not on file Gender Identity Not on file Sexual Orientation Not on file Obstetrics History Last Filed Vital Signs Vital Sign Reading Time Taken Comments Blood Pressure 136/84 07/24/2021 2:12 PM CDT Pulse 72 07/24/2021 2:12 PM CDT Temperature 36.5 ??C (97.7 ??F) 02/12/2021 4:45 PM CD T Respiratory Rate 18 07/18/2021 7:42 AM SPORTS DOCTOR Oxygen Saturation 95% 07/18/2021 7:42 AM SPORTS DOCTOR Inhaled Oxygen Concentration - - Weight 79.4 kg (175 lb) 08/01/2021 9:24 AM CDT Height 182.9 cm (6') 08/01/2021 9:24 AM CDT Body Mass Index 23.73 08/01/2021 9:24 AM CDT Plan of Treatment Health Maintenance Due Date Last Done Comments HIV for age 15-65 1989 Hepatitis C screening for age 18-79 1992 BMI (ht and wt on same day) for age 18+ 04/18/2022 04/18/2021, 02/06/2021, 04/20/2020, Additional history exists Depression screening for age 12+ 09/03/2022 09/03/2021, 08/30/2021, 08/21/2021, Additional history exists COVID-19 vaccine series (2022- season) 2023 01/19/2021, 12/22/2020 Influenza for age 9-49 01/11/2024 Lipids for age 45-75 06/29/2024 06/29/2019, 09/01/19 15 Tetanus booster 08/31/2024 08/31/2014, 08/10/2004 Colonoscopy through age 75 05/04/2025 05/04/2015 Tdap Completed 08/10/2004 Pneumococcal series for age 6-64 Aged Out No longer eligible based on patient's age to complete this topic Medical Devices Implanted Type Area Turnstile Collector Device Identifier Shelf Expiration Date Model / Serial / Lot Mesh Inguinal Rt 4x6in 3-D Max - [id number] Implanted:Qty: 1 on 02/12/2021 by Jose Pierce MD at [facility] Right: Inguinal [employer] 07/09/2025 [id number] / / [id number] Procedures Procedure Name Priority Date/Time Associated Diagnosis Comments LIPID PANEL W REFLEX MEASURED LDL Routine 06/29/2019 11:00 AM SPORTS DOCTOR Screening for diabetes mellitus SCAN-COLONOSCOPY 05/04/2015 8:00 AM SPORTS DOCTOR from Last 3 Months or Most Recently Relevant to Health Maintenance Results * LIPID PANEL W REFLEX MEASURED LDL (06/29/2019 11:00 AM SPORTS DOCTOR) CHOLESTEROL,TOTAL 151 100 - 199 mg/dL 06/29/2019 10:19 PM SPORTS DOCTOR [facility] TRIGLYCERIDES 100 <150 mg/dL 06/29/2019 10:19 PM SPORTS DOCTOR [facility] HDL CHOLESTEROL 62 >40 mg/dL 0 10:19 PM SPORTS DOCTOR [facility] NON-HDL CHOLESTEROL 89 <145 mg/dl 06/29/2019 10:19 PM SPORTS DOCTOR [facility] CHOL/HDL RATIO 2.44 <4.50 06/29/2019 10:19 PM SPORTS DOCTOR [facility] LDL CHOLESTEROL 69 <=130 mg/dL 06/29/2019 10:19 PM SPORTS DOCTOR [facility] PROVIDER ORDERED STATUS FASTING 06/29/2019 10:19 PM SPORTS DOCTOR [facility] Blood BLOOD SPECIMEN / Unknown Venipuncture / Unknown 06/29/2019 11:00 AM SPORTS DOCTOR 06/29/2019 11:00 AM SPORTS DOCTOR Melinda GILMORE CHEMISTRY [facility] [address] [place] [address], * SCAN-COLONOSCOPY (05/04/2015 8:00 AM SPORTS DOCTOR) Narrative Transcriptions John Morrison MD - 05/04/2015 7:04 AM CST [facility] [address], [address], [place] [address] Patient Name: Douglas Emery Gender: Male Exam Date: 05/04/2015 Visit Number: [id number] Age: 40 Years Date of : 1975 Attending MD: John Morrison MD Medical Record#: [id number] ----- Procedure: Colonoscopy Indications: Abdominal pain Diarrhea Hematochezia Referring MD: Referral Self Primary MD: No Primary Medications: Intra Procedure Medications: Received MAC sedation per anesthesia provider Complications: Procedure: An examination of the heart and lungs was performed and found to be withinacceptable limits. The patient was therefore deemed a reasonablecandidate for endoscopy and {cons_sedation: Unexpected Value} sedation. The risks and benefits of the procedure were explained to the patient.After obtaining informed consent, MAC sedation was administered peranesthesia provider and I passed the scope without difficulty via the rectum to the ileum. The appendiceal orificeand ic valve were identified. The scope was retroflexed during theexamination The quality of the prep was excellent (Miralax/Gatorade/2tablets Bisacodyl/Magnesium Citrate). This was a complete examination throughout the entire colon. Findings: Anal canal: internal hemorrhoid(s) Distal 15 cm of TI normal Location - ileum. Maneuver - cold biopsyforceps. Random biopsies were taken throughout the colon to rule out microscopiccolitis. The entire colon was normal. Impression: Diarrhea Hematochezia Procedure: Upper GI Endoscopy Indications: Nausea or Vomiting Provider: John Morrison MD Referring MD: Referral Self Primary MD: No Primary Intra Procedure Medications: Received MAC sedation per anesthesia provider Complications: No immediate complications Procedure: An examination of the heart and lungs was performed within acceptablelimits. The patient was therefore deemed a reasonable candidate for andMAC sedation sedation. The risks and benefits were explained to the patient, who appeared tounderstand. After obtaining informed consent, the scope was passed underdirect vision. Throughout the procedure the patient's blood pressure,pulse and oxygen saturations were monitored. The scope was introducedthrough the mouth and advanced to the second portion of duodenum. Findings: Esophagus: Normal esophagus. The z-line is 40 centimeters from the incisors. Top of the gastric foldsis 40 centimeters from the incisors. Stomach: The diaphragm hiatus is at 45 centimeters from the incisors. Normal mucosa. *Stomach Comments: Stomach otherwise normal Duodenum: Normal duodenum. Celiac Sprue biopsies taken. Celiac Sprue biopsies taken. Impression: Nausea and vomiting, unspecified intactability, vo Pathology Results: A: DUODENUM, BIOPSY: 1. Normal small bowel mucosa 2. No histologic evidence of celiac disease or other enteropathy B: ILEUM, TERMINAL, BIOPSY: 1. Normal small bowel mucosa 2. No evidence of active or chronic ileitis C: COLON, RANDOM, BIOPSY: 1. Normal colonic mucosa 2. No evidence of microscopic, active or chronic colitis MICROSCOPIC A: Performed B: Performed C: Performed Electronically signed by: Luiz Milan MD Plan Comments: Recommendation Comments: 1. Await biopsy results. 2. Consider trail of PPI therapy for GERD as cause of UGI symptoms. 3. Will check blood for H. Pylori Ab today. 4. Proceed with planned colonosocpy. Recommendation Comments: 1. High fiber diet, 25-30 grams daily. 2. Await biopsy results. 3. Will schedule a follow up appointment with Dr. Moulton. _Electronically signed by: John Morrison MD 05/04/2015 cc: Referral Self No Primary John Morrison MD OTHER from Last 3 Months or Most Recently Relevant to Health Maintenance Advance Directives * Full Code (Latest Code Status on File) Date Activated Date Inactivated Comments 02/12/2021 1:13 PM 02/12/2021 7:21 PM Question Answer Comments Code Status Discussion: Not Discussed Care Teams Entertainment Production Professional Relationship Specialty [place] [address] [place] [address] PCP - General Family Practice 08/24/14
== END 2023-11-05 07:33 | disposition home or self-care (01) ==
LOC: NFLDREF 11-07 09:40
PROVIDERS: PCP Internal Medicine; Visit Provider Internal Medicine
DX: Z00.00 Encounter for general adult medical examination without abnormal findings (principal); E78.5 Hyperlipidemia, unspecified; Z13.9 Encounter for screening, unspecified
CPT/HCPCS: 80053; 80061

== ENCOUNTER 2023-11-10 08:28 | Outpatient (CLI) | payer BC, SELFPAY ==
--- OUTSIDE RECORDS SUMMARY | 2023-11-12 08:53 | XMS_ITS | Clinical Summary ---
Author Organization [employer] [facility] Address [place], [place] [address] Care Team Providers Care Safe Technician Name Role Phone Melinda Landin Primary Care [...] Diabetes Brother Diabetes Father Heart Disease Father [place]; CAD Heart Disease Mother Rare heart dis [...] T Respiratory Rate 18 07/18/2021 7:42 AM SOLUTION SALES SENIOR EXECUTIVE Oxygen Saturation 95% 07/18/2021 7:42 AM SOLUTION SALES SENIOR EXECUTIVE Inhaled Oxygen Concentration - - Weight 79.4 [...] this topic Medical Devices Implanted Type Area Advertising Strategist Device Identifier Shelf Expiration Date Model / Serial / Lot Mesh Inguinal Rt 4x6in 3-D Max - [id number] Implanted:Qty: 1 on 02/12/2021 by Jose Pierce MD at [facility] Right: Inguinal [employer] 07/09/2025 [id number] / / [id number] Procedures Procedure Name Priority Date/Time Associated Diagnosis Comments LIPID PANEL W REFLEX MEASURED LDL Routine 06/29/2019 11:00 AM SOLUTION SALES SENIOR EXECUTIVE Screening for diabetes mellitus SCAN-COLONOSCOPY 05/04/2015 8:00 AM SOLUTION SALES SENIOR EXECUTIVE from Last 3 Months or Most Recently Relevant to Health Maintenance Results * LIPID PANEL W REFLEX MEASURED LDL (06/29/2019 11:00 AM SOLUTION SALES SENIOR EXECUTIVE) CHOLESTEROL,TOTAL 151 100 - 199 mg/dL 06/29/2019 10:19 PM SOLUTION SALES SENIOR EXECUTIVE [facility] TRIGLYCERIDES 100 <150 mg/dL 06/29/2019 10:19 PM SOLUTION SALES SENIOR EXECUTIVE [facility] HDL CHOLESTEROL 62 >40 mg/dL 0 10:19 PM SOLUTION SALES SENIOR EXECUTIVE [facility] NON-HDL CHOLESTEROL 89 <145 mg/dl 06/29/2019 10:19 PM SOLUTION SALES SENIOR EXECUTIVE [facility] CHOL/HDL RATIO 2.44 <4.50 06/29/2019 10:19 PM SOLUTION SALES SENIOR EXECUTIVE [facility] LDL CHOLESTEROL 69 <=130 mg/dL 06/29/2019 10:19 PM SOLUTION SALES SENIOR EXECUTIVE [facility] PROVIDER ORDERED STATUS FASTING 06/29/2019 10:19 PM SOLUTION SALES SENIOR EXECUTIVE [facility] Blood BLOOD SPECIMEN / Unknown Venipuncture / Unknown 06/29/2019 11:00 AM SOLUTION SALES SENIOR EXECUTIVE 06/29/2019 11:00 AM SOLUTION SALES SENIOR EXECUTIVE Melinda GILMORE CHEMISTRY [facility] [address] [place] [address], * SCAN-COLONOSCOPY (05/04/2015 8:00 AM SOLUTION SALES SENIOR EXECUTIVE) Narrative Transcriptions John Morrison MD - 05/04/2015 7:04 AM CST [facility] [address], [address], [place] [address] Patient Name: Douglas Emery Gender: Male Exam Date: 05/04/2015 Visit Number: [id number] Age: 40 Years Date of : 1975 Attending MD: John Morrison MD Medical Record#: [id number] ----- Procedure: Colonoscopy Indications: Abdominal pain Diarrhea [...] Code Status Discussion: Not Discussed Care Teams Safe Technician Relationship Specialty [place] [address] [place] [address] PCP - General Family Practice 08/24/14
== END 2023-11-10 08:29 | disposition home or self-care (01) ==
LOC: NFLDREF 11-12 08:52
PROVIDERS: PCP Internal Medicine; Visit Provider Internal Medicine
DX: N20.0 Calculus of kidney (principal)
CPT/HCPCS: 87086

== ENCOUNTER 2023-11-18 10:44 | Outpatient (CLI) | payer BC, SELFPAY ==
--- OUTSIDE RECORDS SUMMARY | 2023-11-18 10:48 | XMS_ITS | Clinical Summary ---
Author Organization [employer] [facility] Address [place], [place] [address] Care Team Providers Care Rubber Boots And Shoes Repairer Name Role Phone Melinda Landin Primary Care [...] Diabetes Brother Diabetes Father Heart Disease Father [place]; CAD Heart Disease Mother Rare heart dis [...] T Respiratory Rate 18 07/18/2021 7:42 AM FILLER BLOCK INSERTER REMOVER Oxygen Saturation 95% 07/18/2021 7:42 AM FILLER BLOCK INSERTER REMOVER Inhaled Oxygen Concentration - - Weight 79.4 [...] this topic Medical Devices Implanted Type Area Paper Cone Drying Machine Operator Device Identifier Shelf Expiration Date Model / Serial / Lot Mesh Inguinal Rt 4x6in 3-D Max - [id number] Implanted:Qty: 1 on 02/12/2021 by Jose Pierce MD at [facility] Right: Inguinal [employer] 07/09/2025 [id number] / / [id number] Procedures Procedure Name Priority Date/Time Associated Diagnosis Comments LIPID PANEL W REFLEX MEASURED LDL Routine 06/29/2019 11:00 AM FILLER BLOCK INSERTER REMOVER Screening for diabetes mellitus SCAN-COLONOSCOPY 05/04/2015 8:00 AM FILLER BLOCK INSERTER REMOVER from Last 3 Months or Most Recently Relevant to Health Maintenance Results * LIPID PANEL W REFLEX MEASURED LDL (06/29/2019 11:00 AM FILLER BLOCK INSERTER REMOVER) CHOLESTEROL,TOTAL 151 100 - 199 mg/dL 06/29/2019 10:19 PM FILLER BLOCK INSERTER REMOVER [facility] TRIGLYCERIDES 100 <150 mg/dL 06/29/2019 10:19 PM FILLER BLOCK INSERTER REMOVER [facility] HDL CHOLESTEROL 62 >40 mg/dL 0 10:19 PM FILLER BLOCK INSERTER REMOVER [facility] NON-HDL CHOLESTEROL 89 <145 mg/dl 06/29/2019 10:19 PM FILLER BLOCK INSERTER REMOVER [facility] CHOL/HDL RATIO 2.44 <4.50 06/29/2019 10:19 PM FILLER BLOCK INSERTER REMOVER [facility] LDL CHOLESTEROL 69 <=130 mg/dL 06/29/2019 10:19 PM FILLER BLOCK INSERTER REMOVER [facility] PROVIDER ORDERED STATUS FASTING 06/29/2019 10:19 PM FILLER BLOCK INSERTER REMOVER [facility] Blood BLOOD SPECIMEN / Unknown Venipuncture / Unknown 06/29/2019 11:00 AM FILLER BLOCK INSERTER REMOVER 06/29/2019 11:00 AM FILLER BLOCK INSERTER REMOVER Melinda GILMORE CHEMISTRY [facility] [address] [place] [address], * SCAN-COLONOSCOPY (05/04/2015 8:00 AM FILLER BLOCK INSERTER REMOVER) Narrative Transcriptions John Morrison MD - 05/04/2015 7:04 AM CST [facility] [address], [address], [place] [address] Patient Name: Douglas Emery Gender: Male Exam Date: 05/04/2015 Visit Number: [id number] Age: 40 Years Date of : 1975 Attending MD: John Morrison MD Medical Record#: [id number] ----- Procedure: Colonoscopy Indications: Abdominal pain Diarrhea [...] Code Status Discussion: Not Discussed Care Teams Rubber Boots And Shoes Repairer Relationship Specialty [place] [address] [place] [address] PCP - General Family Practice 08/24/14
--- NOTE | 2023-11-18 11:00 | CRLHL7_ITS ---
For Patients: As a result of the Century Cures Act, medical imaging exams and procedure reports are released immediately into your electronic medical record. You may view this report before your referring provider. If you have questions, please contact your health care provider. INDICATION: Right-sided abdominal pain and history of stones. TECHNIQUE: CT abdomen and pelvis without contrast, stone protocol. COMPARISON: 05/16/[address] FINDINGS: Kidney/ureters: Several tiny nonobstructing stones in both kidneys, mildly increased in number since prior study. No ureteral stone or hydronephrosis. No suspicious renal mass within the limits of a noncontrast exam. Liver/gallbladder/bile ducts: The liver is normal in size, shape and attenuation. Gallbladder is normal without visualized stones or inflammation. No biliary dilatation. Spleen/pancreas/adrenal glands: The spleen, adrenal glands and pancreas are within normal limits. GI tract: The bowel is unremarkable. Normal appendix. Abdominal wall/omentum/peritoneum: No free air or significant free fluid. No mass or inflammation. Lymph nodes: No lymphadenopathy. Pelvis: Unremarkable pelvis. Lower chest: Unremarkable. IMPRESSION: Mildly increased bilateral nephrolithiasis. No obstruction. No acute findings. Please note that all CT scans at this facility use dose modulation, iterative reconstruction, and/or weight-based dosing when appropriate to reduce radiation dose to as low as reasonably achievable. Dictated by Andreas Anthony MD @ 11/19/2023 2:36:11 PM (Electronically Signed)
== END 2023-11-18 10:45 | disposition home or self-care (01) ==
LOC: CT 10:46
PROVIDERS: PCP Internal Medicine; Visit Provider Internal Medicine
DX: R10.9 Unspecified abdominal pain (principal); N20.0 Calculus of kidney
CPT/HCPCS: 74176

== ENCOUNTER 2024-11-17 15:44 | Outpatient (CLI) | payer BC, SELFPAY | END 2024-11-17 15:45 | disposition home or self-care (01) | PROVIDERS: PCP Internal Medicine; Visit Provider Internal Medicine | DX: Z00.00 Encounter for general adult medical examination without abnormal findings (principal); Z12.5 Encounter for screening for malignant neoplasm of prostate | CPT/HCPCS: G0103 ==

== ENCOUNTER 2024-11-19 05:45 | Outpatient (CLI) | payer BC, SELFPAY | END 2024-11-19 05:46 | disposition home or self-care (01) | LOC: NFLDREF 11-22 15:36 | PROVIDERS: PCP Internal Medicine; Referring Provider Internal Medicine; Visit Provider Internal Medicine | DX: K58.9 Irritable bowel syndrome, unspecified (principal) | CPT/HCPCS: 87338 ==

== ENCOUNTER 2025-04-10 11:29 | Emergency (ER) | payer BC, SELFPAY ==
[2025-04-10] VITALS (7 sets, daily range): BP systolic 139–174; BP diastolic 79–92; PULSE 45–56; RESP 18; TEMP 35.9; O2SAT 96–98; BMI 25.8
--- OUTSIDE RECORDS SUMMARY | 2025-04-10 11:32 | XMS_ITS | Clinical Summary ---
Author Organization [employer] Address [facility] [place] [address] Care Team Providers Care Station Detective Name Role Phone Melinda Landin Primary Care Provider Allergies Active Allergy Reactions Criticality Noted Date Comments House Dust Runny Nose Low 08/01/2021 Sneezing. Medications cetirizine (ZYRTEC) 10 mg tablet Take 1 tablet by mouth once daily. 0 06/29/19 20 Active triamcinolone 0.5% (ARISTOCORT) 0.5 % creamIndications:Other eczema Apply topically to affected area(s) 3 times daily. 15 g 06/29/19 20 Active Additional Information Patient taking differently:TopicalTID PRN, Reported on 08/01/2021 montelukast (SINGULAIR) 10 mg tabletIndications:Gabino rgic rhinoconjunctivitis Take 1 tablet by mouth at bedtime. 90 tablet 1 07/01/19 20 Active ALPRAZolam (XANAX) 0.25 mg tabletIndications:Silvina c attack Take 1 Tablet (0.25 mg) by mouth 3 times daily. 15 Tablet 07/21/19 22 Active QUEtiapine (SEROqueL) 50 mg tabletIndications:Anxi ety disorder, unspecified type Take 1 Tablet (50 mg) by mouth every 6 hours if needed (Anxiety). 30 Tablet 2 08/10/19 22 Active buPROPion (WELLBUTRIN XL) 150 mg Extended-Release tabletIndications:Mild episode of recurrent major depressive disorder,JENARO (generalized anxiety disorder) Take 1 Tablet (150 mg) by mouth once daily. 90 Tablet 08/23/19 Active prazosin (MINIPRESS) 1 mg capsuleIndications:Dep ression with anxiety,Adjustment disorder, unspecified type Take 1 Capsule (1 mg) by mouth 2 times daily. may take BID PRN, once in daytime for anxiety and once at bedtime for sleep. 60 Capsule 2 08/23/19 Active Active Problems Problem Noted Date Diagnosed Date Depression with anxiety 05/01/2014 Right inguinal hernia Posttraumatic stress disorder Obsessive-compulsive disorder Sleepwalking Resolved Problems Problem Noted Date Diagnosed Date Resolved Date Somnambulism 08/26/2017 02/11/2019 Immunizations Immunization Administration Dates Next Due COVID-19 vaccine (Moderna 100mcg/0.5mL) PF, MDV 01/19/2021,12/22/2020 MMR 07/20/1991 Polio Virus, Unspecified 11/21/1976 Td, Preservative Free (age >= 7 Years) 5 Tdap 08/10/2004 Family History Medical History Relation Name Comments Diabetes Brother Diabetes Father Heart Disease Father DC; CAD Heart Disease Mother Rare heart dis [...] Recorded Sex Assigned at Not on file Legal Sex Male 8:10 AM DRONE PILOT Gender Identity Not on file Sexual Orientation Not on file 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 Not on file Not on file Not on file Obstetrics History Last Filed Vital Signs Vital Sign Reading Time Taken Comments Blood Pressure 136/84 07/24/2021 2:12 PM CDT Pulse 72 07/24/2021 2:12 PM CDT Temperature 36.5 C (97.7 F) 02/12/2021 4:45 PM CDT Respiratory Rate 18 07/18/2021 7:42 AM DRONE PILOT Oxygen Saturation 95% 07/18/2021 7:42 AM DRONE PILOT Inhaled Oxygen Concentration - - Weight 79.4 kg (175 lb) 08/01/2021 9:24 AM CDT Height 182.9 cm (6') 08/01/2021 9:24 AM CDT Body Mass Index 23.73 08/01/2021 9:24 AM CDT Plan of Treatment Health Maintenance Due Date Last Done Comments HIV for age 15-65 1989 Hepatitis C screening for ag e 18-79 1992 Hepatitis B series for 19+ ( 1 of 3 - 19+ 3-dose series) 1993 BMI (ht and wt on same day) for age 18+ 04/18/2022 04/18/2021, 02/06/2021, 04/20/2020, Additional history exists Depression screening for age 12+ 09/03/2022 09/03/2021, 08/30/2021, 08/21/2021, Additional history exists Pneumococcal series for age 50+ (1 of 1 - PCV) 2024 Zoster (shingles) series for age 50+ (1 of 2) 2024 Lipids for age 45-75 06/29/2024 06/29/2019, 09/01/19 15 Tetanus booster 08/31/2024 08/31/2014, 08/10/2004 COVID-19 vaccine series ( season) 2025 01/19/2021, 12/22/2020 Influenza Vaccine (#1) 2025 Colonoscopy through age 75 05/10/2034 05/10/2024, RSV vaccine for adults or (1 - 1-dose 75+ series) 2049 Medical Devices Implanted Type Area Maintenance And Engineering Manager Device Identifier Shelf Expiration Date Model / Serial / Lot Mesh Inguinal Rt 4x6in 3-D Max - [id number] Implanted:Qty: 1 on 02/12/2021 by Jose Pierce MD at [facility] Right: Inguinal [employer] 07/09/2025 [id number] / / [id number] Procedures Procedure Name Priority Date/Time Associated Diagnosis Comments SCAN-COLONOSCOPY 05/10/2024 8:30 AM DRONE PILOT LIPID PANEL W REFLEX MEASURED LDL Routine 06/29/2019 11:00 AM DRONE PILOT Screening for diabetes mellitus from Last 3 Months or Most Recently Relevant to Health Maintenance Results * SCAN-COLONOSCOPY (05/10/2024 8:30 AM DRONE PILOT) Narrative Procedure Note Teja Griffin MD - 05/10/2024 7:58 AM CST [facility] [address], [address], [place] [id number] Patient Name: Douglas Emery Gender: Male Exam Date: 05/10/2024 Visit Number: [id number] Age: 49 Years Date of : 1975 Attending MD: Teja Griffin MD Medical Record#: [id number] Procedure: Colonoscopy Indications: Colorectal cancer screening Referring MD: Referral Self Primary MD: No Primary Medications: Admitting Medications: 0.9% Normal Saline at [facility] Intra Procedure Medications: Patient received monitored anesthesia care. Complications: No immediate complications Procedure: An examination of the heart and lungs was performed and found to be withinacceptable limits. . The patient was therefore deemed a reasonablecandidate for endoscopy and sedation. The risks and benefits of the procedure were explained to the patient.After obtaining informed consent, the patient received monitoredanesthesia care and I passed the scope without difficulty via the rectum to the ileum. The appendiceal orificeand ic valve were identified. The scope was retroflexed during theexamination The quality of the prep was excellent (Miralax/Gatorade/2tablets Bisacodyl/Magnesium Citrate). This was a complete examination throughout the entire colon. Findings: Normal finding. Location - ileum. Polyp location: cecum. Quantity: 2. Size: 2 mm, 8 mm. Polyp shape:sessile. Maneuver: polypectomy was performed with a cold snare. Removal: complete. Retrieval: complete. Bleeding: none. Polyp location: ascending colon. Quantity: 3. Size: 3 mm, 5 mm, 5 mm.Polyp shape: sessile. Maneuver: polypectomy was performed with a cold snare. Removal: complete. Retrieval: complete. Bleeding: none. On retroflexion, there was a benign-appearing growth originating below thedentate line, suspect hypertrophic anal papilla. Remainder of the exam is normal. Comments: Retroflexion in the right colon was performed. Impression: Colorectal polyp detected on colonoscopy Colon cancer screening Preliminary Plan: The patient and their physician will receive a copy of the pathologyreport as well as pathology-based recommendations for future screening orsurveillance. Comments: If 3 or more polyps were adenomatous, repeat in 3 years. If 1-2polyps were adenomatous, 7 years. Recommendation Comments: I discussed the anal lesion with the patients -suspect hypertrophic anal papilla, overall looked benign to me.. I didoffer a colorectal surgery referal to get a second opinion about that andsee if it needs a biopsy. He has a GI doc in [place] as well I said hecould ask, potentially they could take a second look with anoscopy [facility]. Pathology Results: A: COLON, CECUM, POLYPS: 1. Tubular adenoma (1) and normal colonic mucosa (endoscopically 2polyps) 2. Negative for high grade dysplasia 3. Per the colonoscopy report: a. Polyp sizes: 2 mm and 8 mm b. Resection: Complete c. Retrieval: Complete B: COLON, ASCENDING, POLYPS: 1. Tubular adenomas (2) and normal colonic mucosa (endoscopically3 polyps) 2. Negative for high grade dysplasia 3. Per the colonoscopy report: a. Polyp sizes: 3 mm - 5 mm b. Resection: Complete c. Retrieval: Complete MICROSCOPIC A: Performed B: Performed SPECIAL STAINING/DEEPER A: Deeper B: Deeper Electronically signed by: Uvaldo Caicedo MD Interpreted at [facility], [address] [place] [phone] Orders Instruction(s)/Education: Instruction/Education Timeframe Assessment Colon Cancer Prevention K63.5 Colon Polyps K63.5 Final Plan: Repeat colonoscopy in 3 years. We will attempt to contact you at appropriate intervals via U.S. mail. Wemay not be able to find you or contact you at that time, therefore youshould know that the responsibility for following our recommendation restswith you. If you don't hear from us at the time your procedure is due,please contact our office to schedule an appointment. If your contactinformation should change, please contact our office so that we can updateyour record. _Electronically signed by: Teja Griffin MD 05/10/2024 cc: No Primary us Teja Griffin MD OTHER Final Re sult * LIPID PANEL W REFLEX MEASURED LDL (06/29/2019 11:00 AM DRONE PILOT) CHOLESTEROL,TOTAL 151 100 - 199 mg/dL 06/29/2019 10:19 PM [facility] TRIGLYCERIDES 100 <150 mg/dL 06/29/2019 10:19 PM DRONE PILOT [facility] HDL CHOLESTEROL 62 >40 mg/dL 0 10:19 PM DRONE PILOT [facility] NON-HDL CHOLESTEROL 89 <145 mg/dl 06/29/2019 10:19 PM DRONE PILOT [facility] CHOL/HDL RATIO 2.44 <4.50 06/29/2019 10:19 PM DRONE PILOT [facility] LDL CHOLESTEROL 69 <=130 mg/dL 06/29/2019 10:19 PM DRONE PILOT [facility] PROVIDER ORDERED STATUS FASTING 06/29/2019 10:19 PM DRONE PILOT [facility] Blood BLOOD SPECIMEN / Unknown Venipuncture / Unknown 06/29/2019 11:00 AM DRONE PILOT 06/29/2019 11:00 AM DRONE PILOT us Melinda GILMORE CHEMISTRY Final Result [facility] [address] [place] [address], from Last 3 Months or Most Recently Relevant to Health Maintenance Insurance [facility] Advance Directives * Full Code (Latest Code Status on File) Date Activated Date Inactivated Comments 02/12/2021 1:13 PM 02/12/2021 7:21 PM Question Answer Comments Code Status Discussion: Not Discussed Care Teams Station Detective Relationship Specialty [place] [address] [place] [address] PCP - General Family Practice 08/24/14
--- NOTE | 2025-04-10 11:42 | ED.GENADULT ---
HPI - General Adult General Date Seen: 04/10/25 Chief complaint: Abdominal Pain Stated complaint: nausea, right abdominal pain Time Seen by Provider: 04/10/25 11:33 History of Present Illness HPI narrative: 49-year-old gentleman with a history of kidney stones, also irritable bowel syndrome, eczema presenting to the ER today with left lower quadrant abdominal pain. Of note his chief complaint stated ?right abdominal pain,?, but the patient in fact endorses left-sided pain. Pain is sharp and similar in nature to previous kidney stones. It started while he was shoveling snow. Prior records show an ER visit in May 2022 for the lower abdominal pain ongoing for 2 or 3 days at that time. Diagnosed presumptively with irritable bowel syndrome. CT scan showed intrarenal stones but no obstructing stones. Urinalysis was contaminated and not thought to represent true UTI. He has been healthy and well lately. He presents to the ER today with his , from home, for evaluation of left lower quadrant abdominal pain. He endorses that the pain will come up this morning and initially thought it was probably a pulled muscle from shoveling snow yesterday. However the pain has gotten steadily worse and is coming and going of unclear trigger. It does not really get better or worse if he tries to move her lays still. It just hurts all the time. The pain became so intense it made him nauseous. The pain is very severe in nature and it is the worst pain he has felt in a long time. He is not vomiting but nauseous. He tried to take ibuprofen 400 mg p.o. but is not helped with the pain. No other symptoms. No antecedent fever. No recent diarrhea. Normal urination. No illness yesterday. No known injury. He does have a small red rash on his left lower quadrant which he thinks is because he burned himself with a heating pad this morning. Related Data Home Medications ?Medication ?Instructions ?Recorded ?Confirmed cetirizine 10 mg tablet 10 mg PO DAILY 06/12/22 04/10/25 Previous Rx's ?Medication ?Instructions ?Recorded ondansetron 4 mg disintegrating 4 mg PO Q12H PRN nausea and 11/17/24 tablet vomiting #60 tabs ondansetron HCl 4 mg tablet 4 mg PO Q8H PRN nausea and 04/10/25 vomiting #10 tabs oxycodone 5 mg tablet 5 - 10 mg (1 - 2 x 5 mg) PO Q4H 04/10/25 PRN pain #14 tabs tamsulosin 0.4 mg capsule (Flomax) 0.4 mg PO DAILY #7 caps 04/10/25 Allergies Allergy/AdvReac Type Severity Reaction Status Date / Time No Known Drug Allergies Allergy Verified 11/17/24 15:26 [facility] Medical History (Updated 04/10/25 @ 14:43 by Azar Lainez MD) Healthcare maintenance ?Z00.00 - Encounter for general adult medical examination without abnormal findings (ICD-10) Healthcare maintenance ?Z00.00 - Encounter for general adult medical examination without abnormal findings (ICD-10) Calculus of kidney ?N20.0 - Calculus of kidney (ICD-10) Irritable bowel ?K58.9 - Irritable bowel syndrome without diarrhea (ICD-10) Social History (Updated 11/18/24 @ 08:10 by Narcisa Correa ~ [facility]) What is your current living situation?: I presently have a place to live Problems where you live: no known problems In the past 12 months, utilities in danger of being shut off: no In past 12 months, lack of transportation kept you from medical appts, meetings, work, or getting things needed for daily living: no In the past 12 mos, have been you worried that your food would run out before you had money to buy more?: never true In the past 12 mos, the food you bought just didn't last and you didn't have money to buy more?: never true Physical activity type: walking and running How many days of moderate to strenuous exercise, like a brisk walk, did you do in the last 7 days: 7 Smoking Status: Never smoker Do you use any of these nicotine containing products: Vaping Products Second hand tobacco smoke exposure: No How often do you have a drink containing alcohol: monthly or less How many standard drinks containing alcohol do you have on a typical day: 1 or 2 How often do you have six or more drinks on one occasion: Never AUDIT-C Alcohol total score: 1 Non-prescribed substance use: denies use Are you now , , , , never or living with a partner: Social isolation score (0-1 are the most socially isolated patients): 1 Within the last year, have you been humiliated or emotionally abused in other ways by your partner or ex-partner: no Within the last year, have you been afraid of your partner or ex-partner: no Within the last year, have you been raped or forced to have any kind of sexual activity by your partner or ex-partner: no Within the last year, have you been kicked, hit, slapped, or otherwise physically hurt by your partner or ex-partner: no HARK total score: 0 How often does anyone, including family, friends and others, physically hurt you: never How often does anyone, including family, friends and others, insult or talk down to you: never How often does anyone, including family, friends and others, threaten you with harm: never How often does anyone, including family, friends and others, scream or curse at you: never Do you think of yourself as: straight/heterosexual Gender Identity: male Are you currently sexually active: Yes Exam Narrative: Exam Narrative: Constitutional: Appears well-developed and well-nourished. Alert. Very uncomfortable appearing, but polite and Conversant. HENT: Head: Atraumatic. Nose: Nose normal. Mouth/Throat: Oral mucosa is clear and moist. no trismus. Eyes: Conjunctivae normal. EOM normal. Pupils equal, round, and reactive to light. No scleral icterus. Neck: Normal range of motion. Neck supple. No tracheal deviation present. Cardiovascular: Normal rate, regular rhythm. No gallop. No friction rub. No murmur heard. Symmetric radial artery pulses Pulmonary/Chest: Effort normal. No stridor. No respiratory distress. No wheezes. No rales. No rhonchi . No tenderness. Abdominal: Soft. Bowel sounds normal. No distension. No mass. Left lower quadrant tenderness. No rebound. No guarding. : No inguinal mass or palpable hernia. No at left inguinal adenopathy. No CVA tenderness. Musculoskeletal: RUE: Normal range of motion. No tenderness. No deformity LUE: Normal range of motion. No tenderness. No deformity RLE: Normal range of motion. No edema. No tenderness. No deformity LLE: Normal range of motion. No edema. No tenderness. No deformity Lymph: No left inguinal adenopathy Neurological: Alert and oriented to person, place, and time. Normal strength. CN II-VII intact. No sensory deficit. GCS eye subscore is 4. GCS verbal subscore is 5. GCS motor subscore is 6. Normal coordination Skin: There is a linear erythematous rash on the far left lower quadrant over the iliac crest which the patient says is probably from having a heating pad on that area this morning. Skin is warm and dry. No rash noted. No pallor. Normal capillary refill. Psychiatric: Normal mood. Normal affect. Const: Vital Signs, click to edit/add: Vital Signs - 24 hr 04/10/25 11:32 Temperature 96.7 F L Pulse Rate [Pulse Oximeter] 48 L Respiratory Rate 18 Blood Pressure [Le ft Upper Arm] 174/92 H Pulse Oximetry 97 Oxygen Delivery Me thod Room Air Course Course ED Course: Recheck - had been much more comfortable after Dilaudid pain coming back. Repeat Dilaudid ordered also add on oral oxycodone for more sustained pain relief. Reevaluation(s) Reevaluation #1: Recheck-says he has been doing much better after oxycodone. Comfortable. He and his are comfortable managing his pain at home. Vital Signs Vital signs: Initial Vital Signs Temperature 96.7 F L 04/10/25 11:32 Temperature Source Temporal Artery Scan 04/10/25 11:32 Pulse Rate 48 L 04/10/25 11:32 Respiratory Rate 18 04/10/25 11:32 Blood Pressure 174/92 H 04/10/25 11:32 Blood Pressure Mean 119 H 04/10/25 11:32 Blood Pressure Position Sitting 04/10/25 11:32 Pulse Oximetry 97 04/10/25 11:32 Oxygen Delivery Method Room Air 04/10/25 11:32 Vital Signs Temperature 96.7 F L 04/10/25 11:32 Pulse Rate 48 L 04/10/25 11:32 Respiratory Rate 18 04/10/25 11:32 Blood Pressure 174/92 H 04/10/25 11:32 Pulse Oximetry 97 04/10/25 11:32 Oxygen Delivery Method Room Air 04/10/25 11:32 Temperature 96.7 F L 04/10/25 11:32 Pulse Rate 48 L 04/10/25 11:32 Respiratory Rate 18 04/10/25 11:32 Blood Pressure 174/92 H 04/10/25 11:32 Pulse Oximetry 97 04/10/25 11:32 Oxygen Delivery Method Room Air 04/10/25 11:32 Medications Administered Medications: Generic Name Dose Route Start Last Admin Trade Name Armando PRN Reason Stop Dose Admin Hydromorphone HCl 0.5 mg 04/10/25 11:50 04/10/25 13:31 Hydromorphone 0.5 Mg/0.5 Ml Inj IVP 0.5 mg Q1H PRN Administration Pain Discontinued Medications Generic Name Dose Route Start Last Admin Trade Name Freq PRN Reason Stop Dose Admin Hydromorphone HCl 1 mg 04/10/25 11:50 04/10/25 12:09 Hydromorphone 0.5 Mg/0.5 Ml Inj IVP 04/10/25 11:51 1 mg ONCE ONE Administration Sodium Chloride 1,000 mls @ 1,000 mls/hr 04/10/25 12:00 04/10/25 14:01 0.9 % Sodium Chloride 1000 Ml IV 04/10/25 12:59 Infused .Q1H EDITA Infusion Ondansetron HCl 4 mg 04/10/25 11:50 04/10/25 12:09 Ondansetron 2 Mg/Ml Inj IVP 04/10/25 11:51 4 mg ONCE ONE Administration Oxycodone HCl 10 mg 04/10/25 13:45 04/10/25 14:10 Oxycodone 5 Mg Tablet PO 04/10/25 13:46 10 mg ONCE ONE Administration Medical Decision Making [facility] Narrative Medical decision making narrative: This patient presents with left lower quad pain. Differential Diagnosis considered includes: Ureterolithiasis, UTI, pyelonephritis, AAA, colitis, diverticulitis, volvulus, appendicitis, hernia, testicular pathology, among others. At this point, the evaluation indicates that ureterolithiasis is the cause of the patient's symptoms. There are no signs that this is an infected stone. The patient's pain is controlled in ED. The patient is hemodynamically stable in ED. I think the patient is safe for discharge. The plan is discharge to home with recheck by primary care physician or urology.They will return to the ED right away if symptoms worsen (e.g Return immediately for fevers greater than 102, increasing pain, other new symptoms develop). Ureterolithiasis precautions for home. Prescriptions for pain control, nausea control, and flomax were provided. The patient's questions were answered. Prescriptions for Zofran and oxycodone. He will also use anfx-nln-nerettl medications as needed. Opiate precautions reviewed. Precautions for return to the ER reviewed. Lab Data Labs: Lab Results 04/10/25 04/10/25 Range/Units 11:39 12:00 WBC 7.43 (4.50-11.00) K/uL RBC 5.70 (4.30-5.90) m/uL Hgb 16.8 (13.5-17.5) gm/dL Hct 50.5 (37.0-53.0) % MCV 89 (80-100) fL MCH 30 (26-34) pg MCHC 33 (32-36) gm/dL RDW Coeff of Yg 11.4 L (11.5-15.5) % Plt Count 206 (140-440) K/uL Neut % (Auto) 78.9 H (42.0-72.0) % Lymph % (Auto) 13.5 L (20-44) % [place] % (Auto) 5.5 (0.0-11.0) % Eos % (Auto) 1.3 (0.0-7.0) % Baso % (Auto) 0.5 (0.0-3.0) % Neut # (Auto) 5.90 (1.7-7.0) K/uL Lymph # (Auto) 1.00 (0.90-2.90) K/uL [place] # (Auto) 0.40 (0.00-0.90) K/UL Eos # (Auto) 0.10 (0.00-0.50) K/uL Baso # (Auto) 0.04 (0.00-0.30) K/uL Abs Immat Gran (auto) 0.02 (0.00-0.30) K/uL Imm/Tot Granulo (auto) 0.3 % Sodium 139 (135-149) mmol/L Potassium 4.4 (3.6-5.1) mmol/L Chloride 101 (96-114) mmol/L Carbon Dioxide 26 (20-32) mmol/L Anion Gap 12 (7-15) mEq/L BUN 9 (7-30) mg/dL Creatinine 1.2 (0.5-1.5) mg/dL Estimated Creat Clear 80.83 Estimated GFR 74 ml/min Glucose 114 (60-115) mg/dL Calcium 9.5 (8.4-10.6) mg/dL Urine Color Yellow (Yellow) Urine Appearance Slightly Cloudy A (Clear) Urine pH 5.5 (5.0-8.5) Ur Specific [place] >= 1.030 (1.000-1.030) Urine Protein 2+ A (Negative) Urine Glucose (UA) Negative (Negative) Urine Ketones Trace A (Negative) Urine Blood 3+ A (Negative) Urine Nitrite Negative (Negative) Urine Bilirubin Negative (Negative) Urine Urobilinogen 0.2 (0.2-1.0) Ur Leukocyte Esterase Negative (Negative) Urine RBC 25-50 A (0-2) Urine WBC 2-5 (0-5) Ur Squamous Epith Cells Few (None-Few) Urine Bacteria Many A (None) Urine Mucus Many A (None) Imaging Data CT scan - abdomen: Attestation: I have reviewed the pertinent imaging results. Radiologist's impression: IMPRESSION: 1. Left ureteral 3 mm stone causing mild hydroureteronephrosis and perinephric stranding. 2. Bilateral nonobstructing nephrolithiasis. Discharge Plan Discharge Clinical Impression: Kidney stone on left side Patient Disposition: Home, Self-Care Condition: Stable Instructions: Kidney Stones (ED) Additional Instructions: As we discussed, please return to the ER right away if you have problems especially worsening or uncontrolled pain, uncontrolled vomiting, or if you develop fever or chills or weakness. Please follow-up with your doctor or the urologist within 1 week to recheck if you are not completely better. To make an appointment with [place] [facility], you can call [phone]. [facility] does not have a relationship with [facility] [place] [facility] so I am not able to place a referral. Use the prescription pain killer, oxycodone, if needed. Be careful because oxycodone can cause dizziness, drowsiness, constipation, and can be addictive. Do not drive a car while taking oxycodone. You can use ebyg-ukd-gnxgdhq medications such as Tylenol or ibuprofen to manage pain before taking oxycodone. Use Zofran for nausea. Take Flomax once per day to help relax the muscles in the ureter where the stone is stuck. This may help improve passage of the stone.. Prescriptions: New oxycodone 5 mg tablet 5 - 10 mg PO Q4H PRN (Reason: pain) Qty: 14 0RF ondansetron HCl 4 mg tablet 4 mg PO Q8H PRN (Reason: nausea and vomiting) Qty: 10 0RF tamsulosin [Flomax] 0.4 mg capsule 0.4 mg PO DAILY Qty: 7 2RF No Action cetirizine 10 mg tablet 10 mg PO DAILY ondansetron 4 mg tablet,disintegrating 4 mg PO Q12H PRN (Reason: nausea and vomiting) Qty: 60 3RF Rx Instructions: No ODT. Dispense only the po swallowed. Follow Up/Referrals: Michele Somers MD [Primary Care Provider, Internal Medicine] Stand Alone Forms: [employer] Info Instructions
[2025-04-10 11:45] LABS: Appearance Urine Slightly Cloudy (Clear)
--- NOTE | 2025-04-10 11:50 | CRLHL7_ITS ---
For Patients: As a result of the Cures Act, medical imaging exams and procedure reports are released immediately into your electronic medical record. You may view this report before your referring provider. If you have questions, please contact your health care provider. INDICATION: Left lower quadrant pain. TECHNIQUE: CT abdomen and pelvis acquired without contrast. COMPARISON: 11/18/2023. FINDINGS: Lower chest: Unremarkable. Liver: Unremarkable. Spleen: Calcified granulomata. Pancreas: Unremarkable. Gallbladder and bile ducts: No calcified stones or biliary ductal dilatation. Kidneys: A 3 mm stone in the mid left ureter causes mild hydroureteronephrosis and perinephric stranding. No right hydronephrosis. Multiple additional bilateral 1-3 mm nonobstructing renal stones. Adrenal glands: Unremarkable. GI tract: Small hiatal hernia. Mild distal colonic diverticulosis without evidence of acute diverticulitis. Normal appendix. No obstruction or inflammatory change elsewhere. No free air or free fluid. Lymph nodes: No pathologic lymphadenopathy. Vascular structures: Unremarkable. Pelvic Organs: Unremarkable. Bones: No acute or suspicious osseous abnormality. IMPRESSION: 1. Left ureteral 3 mm stone causing mild hydroureteronephrosis and perinephric stranding. 2. Bilateral nonobstructing nephrolithiasis. Dictated by Chase Escalona MD @ 04/10/2025 12:47:26 PM Please note that all CT scans at this facility use dose modulation, iterative reconstruction, and/or weight-based dosing when appropriate to reduce radiation dose to as low as reasonably achievable. Dictated by: Chase Escalona MD @ 04/10/2025 12:47:39 (Electronically Signed)
[2025-04-10] MEDS: ONDANSETRON 2 MG/ML inj 4 MG IVP (12:09)
[2025-04-10 12:17] LABS: Hematocrit* 50.5 % (37.0-53.0); Hemoglobin* 16.8 gm/dL (13.5-17.5); Immature Granulocytes Abs Auto 0.02 K/uL (0.00-0.30); Immature Granulocytes Pct Auto 0.3 %; Lymphocytes Absolute Auto 1.00 K/uL (0.90-2.90); Mean Corpuscular HGB Conc 33 gm/dL (32-36); Mean Corpuscular Hemoglobin 30 pg (26-34); Mean Corpuscular Volume 89 fL (80-100); RDW Coefficient of Variation % 11.4 % (11.5-15.5); Red Blood Count* 5.70 m/uL (4.30-5.90); White Blood Count* 7.43 K/uL (4.50-11.00)
[2025-04-10 12:27] LABS: Slide Review Reflex No
[2025-04-10 12:29] LABS: Chloride* 101 mmol/L (96-114); Potassium* 4.4 mmol/L (3.6-5.1); Sodium* 139 mmol/L (135-149)
[2025-04-10 12:32] LABS: Anion Gap 12 mEq/L (7-15); Blood Urea Nitrogen* 9 mg/dL (7-30); Calcium* 9.5 mg/dL (8.4-10.6); Carbon Dioxide* 26 mmol/L (20-32); Creatinine* 1.2 mg/dL (0.5-1.5); Est. Creatinine Clearance* 80.83; Estimated Glomerular Filt Rate 74 ml/min; Glucose* 114 mg/dL (60-115)
== END 2025-04-10 16:16 | disposition home or self-care (01) ==
PROVIDERS: Emergency Provider Emergency Medicine; PCP Internal Medicine
DX: N20.0 Calculus of kidney (principal)
CPT/HCPCS: 36415; 74176; 80048; 81001; 85025; 87086; 96374; 96375; 96376; 99284; A9270; J1171; J2405; J7030

== ENCOUNTER 2025-04-11 12:05 | Emergency (ER) | payer BC, SELFPAY ==
--- OUTSIDE RECORDS SUMMARY | 2025-04-11 12:07 | XMS_ITS | Clinical Summary ---
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 Not on file Not on file Obstetrics History Last Filed Vital Signs Vital Sign Reading Time Taken Comments Blood Pressure 136/84 07/24/2021 2:12 PM CDT Pulse 72 07/24/2021 2:12 PM CDT Temperature 36.5 C (97.7 F) 02/12/2021 4:45 PM CDT Respiratory Rate 18 07/18/2021 7:42 AM ARTS EDUCATION TEACHER Oxygen Saturation 95% 07/18/2021 7:42 AM ARTS EDUCATION TEACHER Inhaled Oxygen Concentration - - Weight 79.4 [...] series) 2049 Medical Devices Implanted Type Area It Infrastructure Engineer Device Identifier Shelf Expiration Date Model / Serial / Lot Mesh Inguinal Rt 4x6in 3-D Max - [id number] Implanted:Qty: 1 on 02/12/2021 by Jose Pierce MD at [facility] Right: Inguinal [employer] 07/09/2025 [id number] / / [id number] Procedures Procedure Name Priority Date/Time Associated Diagnosis Comments SCAN-COLONOSCOPY 05/10/2024 8:30 AM ARTS EDUCATION TEACHER LIPID PANEL W REFLEX MEASURED LDL Routine 06/29/2019 11:00 AM ARTS EDUCATION TEACHER Screening for diabetes mellitus from Last 3 Months or Most Recently Relevant to Health Maintenance Results * SCAN-COLONOSCOPY (05/10/2024 8:30 AM ARTS EDUCATION TEACHER) Narrative Procedure Note Teja Griffin MD - 05/10/2024 7:58 AM CST [facility] [address], [address], [place] [address] Patient Name: Douglas Emery Gender: Male Exam Date: 05/10/2024 Visit Number: [id number] Age: 49 Years Date of : 1975 Attending MD: Teja Griffin MD Medical Record#: [id number] Procedure: Colonoscopy Indications: Colorectal cancer screening Referring MD: Referral Self Primary MD: No Primary Medications: Admitting Medications: 0.9% Normal Saline at [facility] Intra Procedure Medications: Patient received monitored anesthesia [...] biopsy. He has a GI doc in [place] as well I said hecould ask, [facility] Results: A: COLON, CECUM, POLYPS: 1. [...] signed by: Uvaldo Caicedo MD Interpreted at [facility], [address] [place] [phone] Orders Instruction(s)/Education: Instruction/Education Timeframe Assessment Colon Cancer [...] W REFLEX MEASURED LDL (06/29/2019 11:00 AM ARTS EDUCATION TEACHER) CHOLESTEROL,TOTAL 151 100 - 199 mg/dL 06/29/2019 10:19 PM ARTS EDUCATION TEACHER [facility] TRIGLYCERIDES 100 <150 mg/dL 06/29/2019 10:19 PM ARTS EDUCATION TEACHER [facility] HDL CHOLESTEROL 62 >40 mg/dL 0 10:19 PM ARTS EDUCATION TEACHER [facility] NON-HDL CHOLESTEROL 89 <145 mg/dl 06/29/2019 10:19 PM ARTS EDUCATION TEACHER [facility] CHOL/HDL RATIO 2.44 <4.50 06/29/2019 10:19 PM ARTS EDUCATION TEACHER [facility] LDL CHOLESTEROL 69 <=130 mg/dL 06/29/2019 10:19 PM ARTS EDUCATION TEACHER [facility] PROVIDER ORDERED STATUS FASTING 06/29/2019 10:19 PM ARTS EDUCATION TEACHER [facility] Blood BLOOD SPECIMEN / Unknown Venipuncture / Unknown 06/29/2019 11:00 AM ARTS EDUCATION TEACHER 06/29/2019 11:00 AM ARTS EDUCATION TEACHER us Melinda [facility]IL[facility]MI[facility] Final Result [facility] [address] [place] [address], from Last 3 Months or Most Recently Relevant to Health Maintenance Insurance [facility] Advance Directives * Full Code (Latest Code Status on File) Date Activated Date Inactivated Comments 02/12/2021 1:13 PM 02/12/2021 7:21 PM Question Answer Comments Code Status Discussion: Not Discussed Care Teams Home Improvement Advisor Relationship Specialty [place] [address] [place] [address] PCP - General Family Practice 08/24/14
[2025-04-11 12:15] VITALS: BP 121/75; PULSE 105; RESP 20; TEMP 36.9; O2SAT 93; BMI 26.0
--- NOTE | 2025-04-11 12:26 | ED_ITS ---
HPI - General Adult General Time Seen by Provider: 12:35 Date Seen: 04/11/25 Chief complaint: Nausea/Vomiting Stated complaint: Vomiting Time Seen by Provider: 04/11/25 12:09 Source: patient, RN notes reviewed and old records reviewed Mode of arrival: ambulatory Limitations: no limitations History of Present Illness HPI narrative: This 49-year-old male with history of kidney stones is coming in with known acute left renal colic with concerns of ongoing pain, nausea and vomiting. Was seen yesterday and diagnosed with a 3 mm left ureteral stone causing mild hydro ureteronephrosis and perinephric stranding. He had underlying bilateral nonobstructing kidney stones. He has been using Zofran unsuccessfully for nausea and vomiting control, continues to have nausea and vomiting. He has had no fevers. He has noticed no blood in his urine. The pain is still intermittent but severe at times, he had the worst episode of pain he has had this morning. He does not believe that the meds are stain down, he has been using oxycodone for pain control. He notes yesterday after he left the ER he got home and had a very large emesis. About 20 years ago he did tolerate Percocet without gastrointestinal upset. He has had 2 other prior episodes of passing kidney stones, did not require intervention. Due to his symptoms, he does not feel like he is keeping up on fluids. Related Data Home Medications ?Medication ?Instructions ?Recorded ?Confirmed cetirizine 10 mg tablet 10 mg PO DAILY 06/12/2203/14 Previous Rx's ?Medication ?Instructions ?Recorded ondansetron 4 mg disintegrating 4 mg PO Q12H PRN nause a and 11/17/24 tablet vomiting #60 tabs ondansetron HCl 4 mg tablet 4 mg PO Q8H PRN nausea and 04/10/25 vomiting #10 tabs oxycodone 5 mg tablet 5 - 10 mg (1 - 2 x 5 mg) PO Q4H 04/10/25 PRN pain #14 tabs tamsulosin 0.4 mg capsule (Flomax) 0.4 mg PO DAILY #7 caps 04/10/25 Allergies Allergy/AdvReac Type Severity Reaction Status Date / Time No Known Drug Allergies Allergy Verified 11/17/24 15:26 Review of Systems Status of ROS: Reports: 6 or more systems reviewed and unremarkable except as noted in History and below PFSH PFSH Medical History Healthcare maintenance ?Z00.00 - Encounter for general adult medical examination without abnormal findings (ICD-10) Healthcare maintenance ?Z00.00 - Encounter for general adult medical examination without abnormal findings (ICD-10) Calculus of kidney ?N20.0 - Calculus of kidney (ICD-10) Irritable bowel ?K58.9 - Irritable bowel syndrome without diarrhea (ICD-10) Social History What is your current living situation?: I presently have a place to live Problems where you live: no known problems In the past 12 months, utilities in danger of being shut off: no In past 12 months, lack of transportation kept you from medical appts, meetings, work, or getting things needed for daily living: no In the past 12 mos, have been you worried that your food would run out before you had money to buy more?: never true In the past 12 mos, the food you bought just didn't last and you didn't have money to buy more?: never true Physical activity type: walking and running How many days of moderate to strenuous exercise, like a brisk walk, did you do in the last 7 days: 7 Smoking Status: Never smoker Do you use any of these nicotine containing products: Vaping Products Second hand tobacco smoke exposure: No How often do you have a drink containing alcohol: monthly or less How many standard drinks containing alcohol do you have on a typical day: 1 or 2 How often do you have six or more drinks on one occasion: Never AUDIT-C Alcohol total score: 1 Non-prescribed substance use: marijuana (any form) Are you now , , , , never or living with a partner: Social isolation score (0-1 are the most socially isolated patients): 1 Within the last year, have you been humiliated or emotionally abused in other ways by your partner or ex-partner: no Within the last year, have you been afraid of your partner or ex-partner: no Within the last year, have you been raped or forced to have any kind of sexual activity by your partner or ex-partner: no Within the last year, have you been kicked, hit, slapped, or otherwise physically hurt by your partner or ex-partner: no HARK total score: 0 How often does anyone, including family, friends and others, physically hurt you : never How often does anyone, including family, friends and others, insult or talk down to you: never How often does anyone, including family, friends and others, threaten you with harm: never How often does anyone, including family, friends and others, scream or curse at you: never Do you think of yourself as: straight/heterosexual Gender Identity: male Are you currently sexually active: Yes Exam Const: Vital Signs, click to edit/add: Vital Signs - 24 hr 04/11/25 12:15 04/11/25 12:28 04/11/25 12:45 Temperature 98.5 F Pulse Rate [Pulse Oximeter] 105 H 78 Respiratory Rate 20 Blood Pressure [Ri ght Upper Arm] 121/75 Pulse Oximetry 93 94 94 Oxygen Delivery Me thod Room Air Room Air This 49-year-old male is seen in exam room 5, appears uncomfortable, hanging onto an emesis bag. Sclera clear, face atraumatic, able speak in complete sentences. Lips look somewhat dry. Lungs are clear, good air entry, no wheezing or crackles, no tachypnea, no accessory muscle use. CV regular rate and rhythm, no murmur, normal S1-S2, no S3-S4. Abdomen is soft, nontender, no organomegaly, no rebound or guarding. Skin visualized without rash. Patient was ambulatory into the ED of his own accord. Documenting provider has reviewed patient's vital signs: yes Course Course ED Course: This 49-year-old male is having ongoing symptoms with field current home medications with renal colic. He does not have a temperature and has had no fevers at home but do think we need to look at labs and urinalysis again to ensure that there is no developing underlying infection. I do not feel that we need to do repeat imaging at this time but will consider it. I do wonder if the narcotics could be contributing to his nausea and vomiting. We are going to start with a L of IV fluids, 4 mg IV Zofran and do 15 mg IV Toradol. His believes that he did not even require narcotics for the last 2 episodes of kidney stones. Reevaluation(s) Time of Reevaluation #1: 13:37 Reevaluation #1: Patient's pain is down to 3/10, will give IV Tylenol as well. He is feeling much better than prior to coming in. Time of Reevaluation #2: 14:32 Reevaluation #2: Patient is feeling much better, he actually looks better than arrival. He has more color in his face, I realize now how pale he originally was coming in with uncontrolled pain and nausea and vomiting. They would like Toradol. We did discuss that he does have some mild renal dysfunction from the obstructed kidney stone. This should resolve once the kidney stone pushes through. This is small by a measurement on his CT at 3 mm, there is a large chance of this passing on its own. His other stones of only been a couple of days before they passed. They are requesting the Toradol from [facility]. Vital Signs Vital signs: Initial Vital Signs Temperature 98.5 F 04/11/25 12:15 Temperature Source Temporal Artery Scan 04/11/25 12:15 Pulse Rate 105 H 04/11/25 12:15 Respiratory Rate 20 04/11/25 12:15 Blood Pressure 121/75 04/11/25 12:15 Blood Pressure Mean 90 04/11/25 12:15 Blood Pressure Position Sitting 04/11/25 12:15 Pulse Oximetry 93 04/11/25 12:15 Oxygen Delivery Method Room Air 04/11/25 12:15 Vital Signs Temperature 98.5 F 04/11/25 12:15 Pulse Rate 105 H 04/11/25 12:15 Respiratory Rate 20 04/11/25 12:15 Blood Pressure 121/75 04/11/25 12:15 Pulse Oximetry 93 04/11/25 12:15 Oxygen Delivery Method Room Air 04/11/25 12:15 Temperature 98.5 F 04/11/25 12:15 Pulse Rate 78 04/11/25 12:45 Respiratory Rate 20 04/11/25 12:15 Blood Pressure 121/75 04/11/25 12:15 Pulse Oximetry 94 04/11/25 12:45 Oxygen Delivery Method Room Air 04/11/25 12:45 Medications Administered Medications: Discontinued Medications Generic Name Dose Route Start Last Admin Trade Name Freq PRN Reason Stop Dose Admin Sodium Chloride 1,000 mls @ 1,000 mls/hr 04/11/25 12:35 04/11/25 13:59 0.9 % Sodium Chloride 1000 Ml IV 04/11/25 13:34 Infused .Q1H EDITA Infusion Acetaminophen 1,000 mg in 100 mls @ 400 mls/hr 04/11/25 13:36 04/11/25 14:28 Acetaminophen Inj IVPB 04/11/25 13:50 Infused ONCE ONE Infusion Ketorolac Tromethamine 15 mg 04/11/25 12:35 04/11/25 12:57 Ketorolac 15 Mg/Ml Inj IVP 04/11/25 12:36 15 mg ONCE ONE Administration Ondansetron HCl 4 mg 04/11/25 12:35 04/11/25 12:58 Ondansetron 2 Mg/Ml Inj IVP 04/11/25 12:36 4 mg ONCE ONE Administration Medical Decision Making Lab Data Labs: Lab Results 04/11/25 04/11/25 Range/Units 12:41 13:48 WBC 10.10 (4.50-11.00) K/uL RBC 5.24 (4.30-5.90) m/uL Hgb 15.6 (13.5-17.5) gm/dL Hct 46.1 (37.0-53.0) % MCV 88 (80-100) fL MCH 30 (26-34) pg MCHC 34 (32-36) gm/dL RDW Coeff of Yg 11.4 L (11.5-15.5) % Plt Count 167 (140-440) K/uL Neut % (Auto) 84.0 H (42.0-72.0) % Lymph % (Auto) 7.3 L (20-44) % [place] % (Auto) 8.3 (0.0-11.0) % Eos % (Auto) 0.0 (0.0-7.0) % Baso % (Auto) 0.2 (0.0-3.0) % Neut # (Auto) 8.50 H (1.7-7.0) K/uL Lymph # (Auto) 0.70 L (0.90-2.90) K/uL [place] # (Auto) 0.80 (0.00-0.90) K/UL Eos # (Auto) 0.00 (0.00-0.50) K/uL Baso # (Auto) 0.02 (0.00-0.30) K/uL Abs Immat Gran (auto) 0.02 (0.00-0.30) K/uL Imm/Tot Granulo (auto) 0.2 % Sodium 134 L (135-149) mmol/L Potassium 3.6 (3.6-5.1) mmol/L Chloride 97 (96-114) mmol/L Carbon Dioxide 25 (20-32) mmol/L Anion Gap 12 (7-15) mEq/L BUN 12 (7-30) mg/dL Creatinine 1.5 (0.5-1.5) mg/dL Estimated Creat Clear 64.67 Estimated GFR 56 ml/min Glucose 121 H (60-115) mg/dL Lactate 1.1 (0.5-1.9) mmol/L Calcium 9.3 (8.4-10.6) mg/dL Urine Color Yellow (Yellow) Urine Appearance Clear (Clear) Urine pH 5.5 (5.0-8.5) Ur Specific [place] 1.010 (1.000-1.030) Urine Protein Negative (Negative) Urine Glucose (UA) Negative (Negative) Urine Ketones Negative (Negative) Urine Blood 2+ A (Negative) Urine Nitrite Negative (Negative) Urine Bilirubin Negative (Negative) Urine Urobilinogen 0.2 (0.2-1.0) Ur Leukocyte Esterase Negative (Negative) Urine RBC 0-2 (0-2) Urine WBC 2-5 (0-5) Ur Squamous Epith Cells None (None-Few) Urine Bacteria None (None) Urine Mucus Few A (None) Discharge Plan Discharge Clinical Impression: Kidney stone on left side Patient Disposition: Home, Self-Care Condition: Stable Instructions: Kidney Stones (ED), Renal Colic (ED) Additional Instructions: Recommend Tylenol 1000 mg 3 times a day and the Toradol 10 mg every 6 hours as needed, 20 tablets prescribed. Push fluids, goal is for clear looking urine. You need to schedule follow-up in clinic, should have basic metabolic panel reach checked and urology referral placed for recurrent kidney stones. If your kidney stone has not passed within a week, you may need to ultimately see Urology, certainly should be seen in clinic for recheck at that point. In the meantime, if you have worsening pain again not controlled by outline medications, develops fever, developed recurrent vomiting that was not controlled by Zofran at home, need to seek re-evaluation. You still can use the Zofran as previously prescribed. Save the oxycodone for episodes of severe or intense pain. No that the oxycodone may require you to use MiraLax and or senna to prevent constipation from narcotics. Stay on the Flomax daily until the kidney stone has passed. Activity Level: Activity as Tolerated Prescriptions: No Action cetirizine 10 mg tablet 10 mg PO DAILY ondansetron 4 mg tablet,disintegrating 4 mg PO Q12H PRN (Reason: nausea and vomiting) Qty: 60 3RF Rx Instructions: No ODT. Dispense only the po swallowed. oxycodone 5 mg tablet 5 - 10 mg PO Q4H PRN (Reason: pain) Qty: 14 0RF ondansetron HCl 4 mg tablet 4 mg PO Q8H PRN (Reason: nausea and vomiting) Qty: 10 0RF tamsulosin [Flomax] 0.4 mg capsule 0.4 mg PO DAILY Qty: 7 2RF Follow Up/Referrals: Michlee Somers MD [Primary Care Provider, Internal Medicine] Stand Alone Forms: [employer] Info Instructions
[2025-04-11 12:28] VITALS: O2SAT 94
[2025-04-11 12:45] VITALS: PULSE 78; O2SAT 94
[2025-04-11 12:46] LABS: Lactate* 1.1 mmol/L (0.5-1.9)
[2025-04-11 12:48] LABS: Hematocrit* 46.1 % (37.0-53.0); Hemoglobin* 15.6 gm/dL (13.5-17.5); Immature Granulocytes Abs Auto 0.02 K/uL (0.00-0.30); Immature Granulocytes Pct Auto 0.2 %; Mean Corpuscular HGB Conc 34 gm/dL (32-36); Mean Corpuscular Hemoglobin 30 pg (26-34); Mean Corpuscular Volume 88 fL (80-100); RDW Coefficient of Variation % 11.4 % (11.5-15.5); Red Blood Count* 5.24 m/uL (4.30-5.90); White Blood Count* 10.10 K/uL (4.50-11.00)
[2025-04-11] MEDS: ONDANSETRON 2 MG/ML inj 4 MG IVP (12:58)
[2025-04-11 13:07] LABS: Chloride* 97 mmol/L (96-114); Sodium* 134 mmol/L (135-149)
[2025-04-11 13:08] LABS: Potassium* 3.6 mmol/L (3.6-5.1)
[2025-04-11 13:10] LABS: Blood Urea Nitrogen* 12 mg/dL (7-30); Creatinine* 1.5 mg/dL (0.5-1.5); Est. Creatinine Clearance* 64.67; Estimated Glomerular Filt Rate 56 ml/min
[2025-04-11 13:11] LABS: Anion Gap 12 mEq/L (7-15); Calcium* 9.3 mg/dL (8.4-10.6); Carbon Dioxide* 25 mmol/L (20-32); Glucose* 121 mg/dL (60-115)
[2025-04-11 13:51] LABS: Lymphocytes Absolute Auto 0.70 K/uL (0.90-2.90); Slide Review Reflex No
[2025-04-11] MEDS: ACETAMINOPHEN INJ 1,000 MG/100 ML VIAL 400 MG IVPB (13:57)
[2025-04-11 14:00] LABS: Appearance Urine Clear (Clear)
[2025-04-11 14:50] VITALS: BP 132/83; PULSE 74; RESP 18; O2SAT 95
== END 2025-04-11 15:00 | disposition home or self-care (01) ==
PROVIDERS: Emergency Provider Family Medicine; PCP Internal Medicine
DX: N20.0 Calculus of kidney (principal)
CPT/HCPCS: 36415; 80048; 81001; 83605; 85025; 94761; 96365; 96375; 99284; J0131; J1885; J2405; J7030

== ENCOUNTER 2025-04-16 07:09 | Emergency (ER) | payer BC, SELFPAY ==
[2025-04-16 07:11] VITALS: BP 124/82; PULSE 63; RESP 16; TEMP 36.3; O2SAT 96; BMI 26.7
--- OUTSIDE RECORDS SUMMARY | 2025-04-16 07:11 | XMS_ITS | Clinical Summary ---
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 Not on file Not on file Last Filed Vital Signs Vital Sign Reading Time Taken Comments Blood Pressure 136/84 07/24/2021 2:12 PM CDT Pulse 72 07/24/2021 2:12 PM CDT Temperature 36.5 C (97.7 F) 02/12/2021 4:45 PM CDT Respiratory Rate 18 07/18/2021 7:42 AM CELL TENDER Oxygen Saturation 95% 07/18/2021 7:42 AM CELL TENDER Inhaled Oxygen Concentration - - Weight 79.4 [...] series) 2049 Medical Devices Implanted Type Area Plastic Duplicator Device Identifier Shelf Expiration Date Model / Serial / Lot Mesh Inguinal Rt 4x6in 3-D Max - [id number] Implanted:Qty: 1 on 02/12/2021 by Jose Pierce MD at [facility] Right: Inguinal [employer] 07/09/2025 [id number] / / [id number] Procedures Procedure Name Priority Date/Time Associated Diagnosis Comments SCAN-COLONOSCOPY 05/10/2024 8:30 AM CELL TENDER LIPID PANEL W REFLEX MEASURED LDL Routine 06/29/2019 11:00 AM CELL TENDER Screening for diabetes mellitus from Last 3 Months or Most Recently Relevant to Health Maintenance Results * SCAN-COLONOSCOPY (05/10/2024 8:30 AM CELL TENDER) Narrative Procedure Note Teja Griffin MD - 05/10/2024 7:58 AM CST [facility] [address], [address], [place] [id number] Patient Name: Douglas Emery Gender: Male Exam Date: 05/10/2024 Visit Number: [id number] Age: 49 Years Date of : 1975 Attending MD: Teja Griffin MD Medical Record#: [id number] Procedure: Colonoscopy Indications: Colorectal cancer screening Referring MD: Referral Self Primary MD: No Primary Medications: Admitting Medications: 0.9% Normal Saline at TKO Intra Procedure Medications: Patient received monitored anesthesia [...] biopsy. He has a GI doc in [place] as well I said hecould ask, [facility] Results: A: COLON, CECUM, POLYPS: [...] signed by: Uvaldo Caicedo MD Interpreted at [facility], [address] [place] [id number] Orders Instruction(s)/Education: Instruction/Education Timeframe Assessment Colon Cancer [...] W REFLEX MEASURED LDL (06/29/2019 11:00 AM CELL TENDER) CHOLESTEROL,TOTAL 151 100 - 199 mg/dL 06/29/2019 10:19 PM CELL TENDER [facility] TRIGLYCERIDES 100 <150 mg/dL 06/29/2019 10:19 PM CELL TENDER [facility] HDL CHOLESTEROL 62 >40 mg/dL 0 10:19 PM CELL TENDER [facility] NON-HDL CHOLESTEROL 89 <145 mg/dl 06/29/2019 10:19 PM CELL TENDER [facility] CHOL/HDL RATIO 2.44 <4.50 06/29/2019 10:19 PM CELL TENDER [facility] LDL CHOLESTEROL 69 <=130 mg/dL 06/29/2019 10:19 PM CELL TENDER [facility] PROVIDER ORDERED STATUS FASTING 06/29/2019 10:19 PM CELL TENDER [facility] Blood BLOOD SPECIMEN / Unknown Venipuncture / Unknown 06/29/2019 11:00 AM CELL TENDER 06/29/2019 11:00 AM CELL TENDER us Melinda GILMORE CHEMISTRY Final Result [facility] [address] [place] [address], from Last 3 Months or Most Recently Relevant to Health Maintenance Insurance [facility] Advance Directives * Full Code (Latest Code Status on File) Date Activated Date Inactivated Comments 02/12/2021 1:13 PM 02/12/2021 7:21 PM Question Answer Comments Code Status Discussion: Not Discussed Care Teams Breakfast Attendant Relationship Specialty [place] [address] [place] [address] PCP - General Family Practice 08/24/14
--- NOTE | 2025-04-16 07:45 | ED.GENADULT ---
HPI - General Adult General Time Seen by Provider: 07:46 <Stephie Gao MD - Last Filed: 04/17/25 12:21> Date Seen: 04/16/25 <Stephie Gao MD - Last Filed: 04/17/25 12:21> Chief complaint: Flank Pain <Stephie Gao MD - Last Filed: 04/17/25 12:21> Stated complaint: kidney stones <Stephie Gao MD - Last Filed: 04/17/25 12:21> Time Seen by Provider: 04/16/25 07:45 <Stephie Gao MD - Last Filed: 04/17/25 12:21> Source: patient and RN notes reviewed <Stephie Gao MD - Last Filed: 04/17/25 12:21> Mode of arrival: ambulatory <Stephie Gao MD - Last Filed: 04/17/25 12:21> Limitations: no limitations <Stephie Gao MD - Last Filed: 04/17/25 12:21> History of Present Illness HPI narrative: This 49-year-old male is coming to the ER with worsening renal colic this morning. He has a known stone on the left side, was found to have a 3 mm stone within the mid left ureter on CT on April 10. He came back on April 11 with uncontrolled pain, did give him Toradol at that point which to helped significantly. He was doing well at home using primarily Toradol. He had some oxycodone as well but felt the Toradol helped better. Pain awoke him this morning at 5:30 a.m.. He took the Toradol without any relief. He was dry heaving on the way here. Feels a bit better now. He is out of narcotic pain medicines at home. He had a temperature of 99.5? F last night. He notes this morning the pain was quite severe, was in the left back. He felt it in the mid to lower abdomen as well. He has not felt feverish this morning at all. <Stephie Gao MD - Last Filed: 04/17/25 12:21> Related Data Home medications: Home Medications ?Medication ?Instructions ?Recorded ?Confirmed cetirizine 10 mg tablet 10 mg PO DAILY 06/12/22 04/16/25 ketorolac 10 mg tablet 10 mg PO Q6H PRN 04/16/25 04/16/25 Previous Rx's ?Medication ?Instructions ?Recorded ondansetron 4 mg disintegrating 4 mg PO Q12H PRN nausea and 11/17/24 tablet vomiting #60 tabs ondansetron HCl 4 mg tablet 4 mg PO Q8H PRN nausea and 04/10/25 vomiting #10 tabs oxycodone 5 mg tablet 5 - 10 mg (1 - 2 x 5 mg) PO Q4H 04/10/25 PRN pain #14 tabs tamsulosin 0.4 mg capsule (Flomax) 0.4 mg PO DAILY #7 caps 04/10/25 ketorolac 10 mg tablet 10 mg PO Q6H PRN pain #20 tabs 04/16/25 oxycodone 5 mg tablet 5 mg PO Q6H PRN pain #12 tabs 04/16/25 <Stephie Gao MD - Last Filed: 04/17/25 12:21> Allergies/adverse reactions: Allergies Allergy/AdvReac Type Severity Reaction Status Date / Time No Known Drug Allergies Allergy Verified 04/16/25 07:19 <Stephie Gao MD - Last Filed: 04/17/25 12:21> Review of Systems Status of ROS: Reports: 6 or more systems reviewed and unremarkable except as noted in History and below <Stephie Gao MD - Last Filed: 04/17/25 12:21> [facility] Medical History: Medical History Healthcare maintenance ?Z00.00 - Encounter for general adult medical examination without abnormal findings (ICD-10) Healthcare maintenance ?Z00.00 - Encounter for general adult medical examination without abnormal findings (ICD-10) Calculus of kidney ?N20.0 - Calculus of kidney (ICD-10) Irritable bowel ?K58.9 - Irritable bowel syndrome without diarrhea (ICD-10) <Stephie Gao MD - Last Filed: 04/17/25 12:21> Social History: Social History What is your current living situation?: I presently have a place to live Problems where you live: no known problems In the past 12 months, utilities in danger of being shut off: no In past 12 months, lack of transportation kept you from medical appts, meetings, work, or getting things needed for daily living: no In the past 12 mos, have been you worried that your food would run out before you had money to buy more?: never true In the past 12 mos, the food you bought just didn't last and you didn't have money to buy more?: never true Physical activity type: walking and running How many days of moderate to strenuous exercise, like a brisk walk, did you do in the last 7 days: 7 Smoking Status: Never smoker Do you use any of these nicotine containing products: Vaping Products Second hand tobacco smoke exposure: No How often do you have a drink containing alcohol: monthly or less How many standard drinks containing alcohol do you have on a typical day: 1 or 2 How often do you have six or more drinks on one occasion: Never AUDIT-C Alcohol total score: 1 Non-prescribed substance use: marijuana (any form) Are you now , , , , never or living with a partner: Social isolation score (0-1 are the most socially isolated patients): 1 Within the last year, have you been humiliated or emotionally abused in other ways by your partner or ex-partner: no Within the last year, have you been afraid of your partner or ex-partner: no Within the last year, have you been raped or forced to have any kind of sexual activity by your partner or ex-partner: no Within the last year, have you been kicked, hit, slapped, or otherwise physically hurt by your partner or ex-partner: no HARK total score: 0 How often does anyone, including family, friends and others, physically hurt you: never How often does anyone, including family, friends and others, insult or talk down to you: never How often does anyone, including family, friends and others, threaten you with harm: never How often does anyone, including family, friends and others, scream or curse at you: never Do you think of yourself as: straight/heterosexual Gender Identity: male Are you currently sexually active: Yes <Stephie Gao MD - Last Filed: 04/17/25 12:21> Exam Const: Vital Signs, click to edit/add: Vital Signs - 24 hr 04/16/25 07:11 Temperature 97.4 F L Pulse Rate [Pulse Oximeter] 63 Respiratory Rate 16 Blood Pressure [Ri ght Upper Arm] 124/82 Pulse Oximetry 96 Oxygen Delivery Me thod Room Air This 49-year-old male is alert, interactive, no apparent distress. He is seen exam room 3. He looks better than what he initially did on April 11. He is hanging onto an emesis bag. Sclera clear, symmetrical facial function, speech is normal. Lungs are clear, good air entry, no wheeze or crackles, no tachypnea. CV regular rate and rhythm, no murmur, normal S1-S2, no S3-S4. Abdomen is soft, nontender, nondistended, no organomegaly, no rebound or guarding. <Stephie Gao MD - Last Filed: 04/17/25 12:21> Vital Signs, click to edit/add: Vital Signs - 24 hr 04/16/25 07:11 Temperature 97.4 F L Pulse Rate [Pulse Oximeter] 63 Respiratory Rate 16 Blood Pressure [Ri ght Upper Arm] 124/82 Pulse Oximetry 96 Oxygen Delivery Me thod Room Air <Cosme Lang DO - Last Filed: 04/16/25 09:08> Documenting provider has reviewed patient's vital signs: yes <Stephie Gao MD - Last Filed: 04/17/25 12:21> Course Course ED Course: This 49-year-old male is here with increasing pain with a known kidney stone. Will place an IV, give him IV fluids, give him Zofran, Toradol and morphine. It is possible that the stone moved. Do need to make sure that there is no concern for infection. Will be obtaining basic metabolic panel to ensure his kidney function is still adequately appropriate for ongoing Toradol use. Will also be getting a white count, recheck his urine to ensure no infection. Will hold off on imaging at this time but that may need to be considered if we cannot control his pain or if there is concern for infection. Would favor doing CT with IV contrast if we are concerned about infection. Will be signing off to my oncoming partner. <Stephie Gao MD - Last Filed: 04/17/25 12:21> Vital Signs Vital signs: Initial Vital Signs Temperature 97.4 F L 04/16/25 07:11 Temperature Source Temporal Artery Scan 04/16/25 07:11 Pulse Rate 63 04/16/25 07:11 Respiratory Rate 16 04/16/25 07:11 Blood Pressure 124/82 04/16/25 07:11 Blood Pressure Mean 96 04/16/25 07:11 Blood Pressure Position Sitting 04/16/25 07:11 Pulse Oximetry 96 04/16/25 07:11 Oxygen Delivery Method Room Air 04/16/25 07:11 Vital Signs Temperature 97.4 F L 04/16/25 07:11 Pulse Rate 63 04/16/25 07:11 Respiratory Rate 16 04/16/25 07:11 Blood Pressure 124/82 04/16/25 07:11 Pulse Oximetry 96 04/16/25 07:11 Oxygen Delivery Method Room Air 04/16/25 07:11 Temperature 97.4 F L 04/16/25 07:11 Pulse Rate 48 L 04/16/25 08:10 Respiratory Rate 16 04/16/25 08:10 Blood Pressure 124/82 04/16/25 07:11 Pulse Oximetry 95 04/16/25 08:10 Oxygen Delivery Method Room Air 04/16/25 08:10 <Stephie Gao MD - Last Filed: 04/17/25 12:21> Initial Vital Signs Temperature 97.4 F L 04/16/25 07:11 Temperature Source Temporal Artery Scan 04/16/25 07:11 Pulse Rate 63 04/16/25 07:11 Respiratory Rate 16 04/16/25 07:11 Blood Pressure 124/82 04/16/25 07:11 Blood Pressure Mean 96 04/16/25 07:11 Blood Pressure Position Sitting 04/16/25 07:11 Pulse Oximetry 96 04/16/25 07:11 Oxygen Delivery Method Room Air 04/16/25 07:11 Vital Signs Temperature 97.4 F L 04/16/25 07:11 Pulse Rate 63 04/16/25 07:11 Respiratory Rate 16 04/16/25 07:11 Blood Pressure 124/82 04/16/25 07:11 Pulse Oximetry 96 04/16/25 07:11 Oxygen Delivery Method Room Air 04/16/25 07:11 Temperature 97.4 F L 04/16/25 07:11 Pulse Rate 48 L 04/16/25 08:10 Respiratory Rate 16 04/16/25 08:10 Blood Pressure 124/82 04/16/25 07:11 Pulse Oximetry 95 04/16/25 08:10 Oxygen Delivery Method Room Air 04/16/25 08:10 <Cosme Lang DO - Last Filed: 04/16/25 09:08> Medications Administered Medications: Discontinued Medications Generic Name Dose Route Start Last Admin Trade Name Freq PRN Reason Stop Dose Admin Sodium Chloride 1,000 mls @ 500 mls/hr 04/16/25 07:51 04/16/25 08:23 0.9 % Sodium Chloride 1000 Ml IV 04/16/25 09:50 500 mls/hr .Q2H EDITA Administration Ketorolac Tromethamine 15 mg 04/16/25 07:51 04/16/25 08:23 Ketorolac 15 Mg/Ml Inj IVP 04/16/25 07:52 15 mg ONCE ONE Administration Morphine Sulfate 2 mg 04/16/25 07:51 04/16/25 08:25 Morphine 2 Mg/Ml Inj IVP 04/16/25 07:52 2 mg ONCE ONE Administration Ondansetron HCl 4 mg 04/16/25 07:51 04/16/25 08:23 Ondansetron 2 Mg/Ml Inj IVP 04/16/25 07:52 4 mg ONCE ONE Administration <Stephie Gao MD - Last Filed: 04/17/25 12:21> Discontinued Medications Generic Name Dose Route Start Last Admin Trade Name Freq PRN Reason Stop Dose Admin Sodium Chloride 1,000 mls @ 500 mls/hr 04/16/25 07:51 04/16/25 08:23 0.9 % Sodium Chloride 1000 Ml IV 04/16/25 09:50 500 mls/hr .Q2H EDITA Administration Ketorolac Tromethamine 15 mg 04/16/25 07:51 04/16/25 08:23 Ketorolac 15 Mg/Ml Inj IVP 04/16/25 07:52 15 mg ONCE ONE Administration Morphine Sulfate 2 mg 04/16/25 07:51 04/16/25 08:25 Morphine 2 Mg/Ml Inj IVP 04/16/25 07:52 2 mg ONCE ONE Administration Ondansetron HCl 4 mg 04/16/25 07:51 04/16/25 08:23 Ondansetron 2 Mg/Ml Inj IVP 04/16/25 07:52 4 mg ONCE ONE Administration <Cosme Lang, DO - Last Filed: 04/16/25 09:08> Medical Decision Making MDM Narrative Medical decision making narrative: Patient is a 49-year-old male signed out to me pending lab work. Urinalysis shows blood in the urine but no signs of UTI. Rest of lab work shows no concerning abnormalities. Creatinine is within normal limits and actually much improved compared to his recent creatinines. Concerned he states the pain was basically went away for 4 days and then suddenly came back his stone likely went from being stuck in the midportion of the ureter and now at the UVJ junction. He is feeling much better after the pain medication. He feels comfortable with discharge. Will provide him oxycodone and Toradol. He already has prescription for Flomax. Has 2 more refills. I offered Zofran but he declined. He will be discharged. <Cosme Lang, - Last Filed: 04/16/25 09:08> Lab Data Labs: Lab Results 04/16/25 04/16/25 Range/Units 07:35 08:15 WBC 5.88 (4.50-11.00) K/uL RBC 5.10 (4.30-5.90) m/uL Hgb 15.0 (13.5-17.5) gm/dL Hct 45.1 (37.0-53.0) % MCV 88 (80-100) fL MCH 29 (26-34) pg MCHC 33 (32-36) gm/dL RDW Coeff of Yg 11.3 L (11.5-15.5) % Plt Count 169 (140-440) K/uL Neut % (Auto) 72.8 H (42.0-72.0) % Lymph % (Auto) 14.6 L (20-44) % Garden % (Auto) 9.9 (0.0-11.0) % Eos % (Auto) 1.7 (0.0-7.0) % Baso % (Auto) 0.7 (0.0-3.0) % Neut # (Auto) 4.30 (1.7-7.0) K/uL Lymph # (Auto) 0.90 (0.90-2.90) K/uL [place] # (Auto) 0.60 (0.00-0.90) K/UL Eos # (Auto) 0.10 (0.00-0.50) K/uL Baso # (Auto) 0.04 (0.00-0.30) K/uL Abs Immat Gran (auto) 0.02 (0.00-0.30) K/uL Imm/Tot Granulo (auto) 0.3 % Sodium 138 (135-149) mmol/L Potassium 4.0 (3.6-5.1) mmol/L Chloride 102 (96-114) mmol/L Carbon Dioxide 26 (20-32) mmol/L Anion Gap 10 (7-15) mEq/L BUN 9 (7-30) mg/dL Creatinine 0.9 (0.5-1.5) mg/dL Estimated Creat Clear 107.78 Estimated GFR 104 ml/min Glucose 106 (60-115) mg/dL Calcium 8.8 (8.4-10.6) mg/dL Urine Color Yellow (Yellow) Urine Appearance Clear (Clear) Urine pH 6.0 (5.0-8.5) Ur Specific [place] 1.020 (1.000-1.030) Urine Protein Negative (Negative) Urine Glucose (UA) Negative (Negative) Urine Ketones Negative (Negative) Urine Blood 2+ A (Negative) Urine Nitrite Negative (Negative) Urine Bilirubin Negative (Negative) Urine Urobilinogen 1.0 (0.2-1.0) Ur Leukocyte Esterase Negative (Negative) Urine RBC 0-2 (0-2) Urine WBC 0-2 (0-5) Ur Squamous Epith Cells None (None-Few) Urine Bacteria None (None) <Stephie Gao MD - Last Filed: 04/17/25 12:21> Lab Results 04/16/25 04/16/25 Range/Units 07:35 08:15 WBC 5.88 (4.50-11.00) K/uL RBC 5.10 (4.30-5.90) m/uL Hgb 15.0 (13.5-17.5) gm/dL Hct 45.1 (37.0-53.0) % MCV 88 (80-100) fL MCH 29 (26-34) pg MCHC 33 (32-36) gm/dL RDW Coeff of Yg 11.3 L (11.5-15.5) % Plt Count 169 (140-440) K/uL Neut % (Auto) 72.8 H (42.0-72.0) % Lymph % (Auto) 14.6 L (20-44) % Garden % (Auto) 9.9 (0.0-11.0) % Eos % (Auto) 1.7 (0.0-7.0) % Baso % (Auto) 0.7 (0.0-3.0) % Neut # (Auto) 4.30 (1.7-7.0) K/uL Lymph # (Auto) 0.90 (0.90-2.90) K/uL [place] # (Auto) 0.60 (0.00-0.90) K/UL Eos # (Auto) 0.10 (0.00-0.50) K/uL Baso # (Auto) 0.04 (0.00-0.30) K/uL Abs Immat Gran (auto) 0.02 (0.00-0.30) K/uL Imm/Tot Granulo (auto) 0.3 % Sodium 138 (135-149) mmol/L Potassium 4.0 (3.6-5.1) mmol/L Chloride 102 (96-114) mmol/L Carbon Dioxide 26 (20-32) mmol/L Anion Gap 10 (7-15) mEq/L BUN 9 (7-30) mg/dL Creatinine 0.9 (0.5-1.5) mg/dL Estimated Creat Clear 107.78 Estimated GFR 104 ml/min Glucose 106 (60-115) mg/dL Calcium 8.8 (8.4-10.6) mg/dL Urine Color Yellow (Yellow) Urine Appearance Clear (Clear) Urine pH 6.0 (5.0-8.5) Ur Specific [place] 1.020 (1.000-1.030) Urine Protein Negative (Negative) Urine Glucose (UA) Negative (Negative) Urine Ketones Negative (Negative) Urine Blood 2+ A (Negative) Urine Nitrite Negative (Negative) Urine Bilirubin Negative (Negative) Urine Urobilinogen 1.0 (0.2-1.0) Ur Leukocyte Esterase Negative (Negative) Urine RBC 0-2 (0-2) Urine WBC 0-2 (0-5) Ur Squamous Epith Cells None (None-Few) Urine Bacteria None (None) <Cosme Lang DO - Last Filed: 04/16/25 09:08> Discharge Plan Discharge Clinical Impression: Kidney stone on left side <Stephie Gao MD - Last Filed: 04/17/25 12:21> Patient Disposition: Home, Self-Care <Stephie Gao MD - Last Filed: 04/17/25 12:21> Condition: Improved <Stephie Gao MD - Last Filed: 04/17/25 12:21> Instructions: How to Strain Your Urine (ED) <Stephie Gao MD - Last Filed: 04/17/25 12:21> Additional Instructions: Take Tylenol as needed for pain if that is not helping use the Toradol and oxycodone. Do not take ibuprofen or naproxen or any other NSAIDs while taking Toradol as they the same class of drugs. You can use the Tylenol and oxycodone though. Continue to take the the Flomax until you passed the kidney stone. Return to emergency department for new or worsening symptoms. <Stephie Gao MD - Last Filed: 04/17/25 12:21> Prescriptions: New ketorolac 10 mg tablet 10 mg PO Q6H PRN (Reason: pain) Qty: 20 0RF Rx Instructions: maximum total duration of 5 days from all oral, intranasal, or parenteral formulations oxycodone 5 mg tablet 5 mg PO Q6H PRN (Reason: pain) Qty: 12 0RF No Action cetirizine 10 mg tablet 10 mg PO DAILY ondansetron 4 mg tablet,disintegrating 4 mg PO Q12H PRN (Reason: nausea and vomiting) Qty: 60 3RF Rx Instructions: No ODT. Dispense only the po swallowed. oxycodone 5 mg tablet 5 - 10 mg PO Q4H PRN (Reason: pain) Qty: 14 0RF Patient Comments: out of medication ondansetron HCl 4 mg tablet 4 mg PO Q8H PRN (Reason: nausea and vomiting) Qty: 10 0RF tamsulosin [Flomax] 0.4 mg capsule 0.4 mg PO DAILY Qty: 7 2RF ketorolac 10 mg tablet 10 mg PO Q6H PRN Patient Comments: out of this med and would like more <Stephie Gao MD - Last Filed: 04/17/25 12:21> Follow Up/Referrals: Michele Somers MD [Primary Care Provider, Internal Medicine] <Stephie Gao MD - Last Filed: 04/17/25 12:21> Stand Alone Forms: [facility] Info Instructions <Stephie Gao MD - Last Filed: 04/17/25 12:21>
[2025-04-16 07:49] LABS: Appearance Urine Clear (Clear)
[2025-04-16 08:10] VITALS: PULSE 48; RESP 16; O2SAT 95
[2025-04-16] MEDS: ONDANSETRON 2 MG/ML inj 4 MG IVP (08:23)
[2025-04-16 08:34] LABS: Hematocrit* 45.1 % (37.0-53.0); Hemoglobin* 15.0 gm/dL (13.5-17.5); Immature Granulocytes Abs Auto 0.02 K/uL (0.00-0.30); Immature Granulocytes Pct Auto 0.3 %; Mean Corpuscular HGB Conc 33 gm/dL (32-36); Mean Corpuscular Hemoglobin 29 pg (26-34); Mean Corpuscular Volume 88 fL (80-100); RDW Coefficient of Variation % 11.3 % (11.5-15.5); Red Blood Count* 5.10 m/uL (4.30-5.90); White Blood Count* 5.88 K/uL (4.50-11.00)
[2025-04-16 08:36] LABS: Lymphocytes Absolute Auto 0.90 K/uL (0.90-2.90); Slide Review Reflex No
[2025-04-16 08:47] LABS: Chloride* 102 mmol/L (96-114); Potassium* 4.0 mmol/L (3.6-5.1); Sodium* 138 mmol/L (135-149)
[2025-04-16 08:50] LABS: Anion Gap 10 mEq/L (7-15); Blood Urea Nitrogen* 9 mg/dL (7-30); Carbon Dioxide* 26 mmol/L (20-32); Creatinine* 0.9 mg/dL (0.5-1.5); Est. Creatinine Clearance* 107.78; Estimated Glomerular Filt Rate 104 ml/min
[2025-04-16 08:51] LABS: Calcium* 8.8 mg/dL (8.4-10.6); Glucose* 106 mg/dL (60-115)
== END 2025-04-16 09:21 | disposition home or self-care (01) ==
PROVIDERS: Family Medicine; Emergency Provider Student in an Organized Health Care Education/Training Program; PCP Internal Medicine
DX: N20.0 Calculus of kidney (principal)
CPT/HCPCS: 36415; 80048; 81001; 85025; 96374; 96375; 99284; J1885; J2270; J2405; J7030

== ENCOUNTER 2025-04-22 17:40 | Emergency (ER) | payer BC, SELFPAY ==
--- OUTSIDE RECORDS SUMMARY | 2025-04-22 17:42 | XMS_ITS | Clinical Summary ---
Author Organization [facility] Address [facility] [place] [address] Care Team Providers Care Sheet [place] Name Role Phone Melinda Landin Primary Care Provider Allergies Active AllergyReactionsCriticalityNoted DateCommentsHouse DustRunny NoseLow 08/01/2021 Sneezing. Medications MedicationSigDispense QuantityRefillsLast FilledStart DateEnd DateStatus cetirizine (ZYRTEC) 10 mg tablet Take 1 tablet by mouth once daily.Active triamcinolone 0.5% (ARISTOCORT) 0.5 % cream Indications:Other eczemaApply topically to affected area(s) 3 times daily. 15 g 06/29/2019Active Additional Information Patient taking differently:TopicalTID PRN, Reported on 08/01/2021 montelukast (SINGULAIR) 10 mg tablet Indications:Allergic rhinoconjunctivitisTake 1 tablet by mouth at bedtime. 90 tablet Active ALPRAZolam (XANAX) 0.25 mg tablet Indications:Panic attackTake 1 Tablet (0.25 mg) by mouth 3 times daily. 15 Tablet 2Active QUEtiapine (SEROqueL) 50 mg tablet Indications:Anxiety disorder, unspecified typeTake 1 Tablet (50 mg) by mouth every 6 hours if needed (Anxiety). 30 Tablet 2Active buPROPion (WELLBUTRIN XL) 150 mg Extended-Release tablet Indications:Mild episode of recurrent major depressive disorder,JENARO (generalized anxiety disorder)Take 1 Tablet (150 mg) by mouth once daily. 90 Tablet 08/22/2021ctive prazosin (MINIPRESS) 1 mg capsule Indications:Depression with anxiety,Adjustment disorder, unspecified typeTake 1 Capsule (1 mg) by mouth 2 times daily. may take BID PRN, once in daytime for anxiety and once at bedtime for sleep. 60 Capsule ctive Active Problems ProblemNoted DateDiagnosed DateDepression with sqfcmrh8105/01/2014Right inguinal herniaPosttraumatic stress disorderObsessive-compulsive disorderSleepwalking Resolved Problems ProblemNoted DateDiagnosed DateResolved VdyoZvbxywpousdp66 Immunizations ImmunizationAdministration DatesNext DueCOVID-19 vaccine (Moderna 100mcg/0.5mL) PF, MDV01/19/2021,12/22/2020MMR07/20/1991Polio Virus, Ewfphedyrxe83/13/1977Td, Preservative Free (age >= 7 Years)08/31/2014Tdap08/10/2004 Family History Medical HistoryRelationNameCommentsDiabetesBrotherDiabetesFatherHeart Disease FatherMI; CADHeart DiseaseMotherRare heart disease (not genetic)RelationName StatusCommentsBrotherAliveFatherDeceased (Age 62)MotherDeceased (Age 52)Rare heart condition (not genetic)SisterAlive Social History Tobacco UseTypesPacks/DayYears UsedDateSmoking Tobacco: NeverSmokeless Tobacco: Never Tobacco Cessation:Counseling Given: Yes Alcohol UseStandard Drinks/WeekCommentsNo0 (1 standard drink = 0.6 oz pure alcohol)PHQ-2AnswerDate RecordedPHQ-2 TOTAL HZERB296ocial Connections AnswerDate RecordedFrequency of Communication with Friends and FamilyNot on file 05/12/2021Financial Resource StrainAnswerDate RecordedDifficulty of Paying Living ExpensesNot on file05/12/2021ifficulty of Paying Living ExpensesNot on file05/12/2021ex and Gender InformationValueDate RecordedSex Assigned at Not on fileLegal BrtLiip3705/25/2012 8:10 AM CSTGender IdentityNot on fileSexual OrientationNot on fileOccupationIndustryJob Start DateJob End DateAccount ManagerNot on fileNot on fileNot on file Last Filed Vital Signs Vital SignReadingTime TakenCommentsBlood Zzwceica526/8407/24/2021 2:12 PM CDT Wdjhx9522/15/2022 2:12 PM FHYYfoobvkajgs55.5 ??C (97.7 ??F)02/12/2021 4:45 PM CDTRespiratory Gqut826207/18/2021 7:42 AM CSTOxygen Cwhwswnmfh92%07/18/2021 7:42 AM CSTInhaled Oxygen Concentration--Ocypgi76.4 kg (175 lb)08/01/2021 9:24 AM CDT Adhzec838.9 cm (6')08/01/2021 9:24 AM CDTBody Mass Index23.7308/01/2021 9:24 AM CDT Plan of Treatment Health MaintenanceDue DateLast DoneCommentsHIV for age 15-6504/21/1989Hepatitis C screening for age 18-7904/21/1992Hepatitis B series for 19+ (1 of 3 - 19+ 3- dose series)1993BMI (ht and wt on same day) for age 18+04/18/2022 04/18/2021, 02/06/2021, 04/20/2020, Additional history existsDepression screening for age 12+, 08/30/2021, 08/21/2021, Additional history existsPneumococcal series for age 50+ (1 of 1 - PCV)2024Zoster (shingles) series for age 50+ (1 of 2)2024Lipids for age 45-75006/29/2024 06/29/2019, 08/31/2014Tetanus wawgqca79/22/04188808/31/2014, 08/10/2004COVID-19 vaccine series (3 - 2024- season)5001/19/2021, 12/22/2020Influenza Vaccine (#1)5Colonoscopy through age 7512/30/420437/, 05/04/2015 RSV vaccine for adults or (1 - 1-dose 75+ series)2049 Medical Devices ImplantedTypeAreaManufacturerDevice IdentifierShelf Expiration DateModel / Serial / LotMesh Inguinal Rt 4x6in 3-D Max - [id number] Implanted:Qty: 1 on 02/12/2021 [facility]: InguinalDavol [id number] / / [id number] Procedures Procedure NamePriorityDate/TimeAssociated DiagnosisCommentsSCAN-COLONOSCOPY 05/10/2024 8:30 AM AIRPLANE TUBE BUILDER LIPID PANEL W REFLEX MEASURED BUYPbrmzwo59/18/2020 11:00 AM AIRPLANE TUBE BUILDER Screening for diabetes mellitus from Last 3 Months or Most Recently Relevant to Health Maintenance Results * SCAN-COLONOSCOPY (05/10/2024 8:30 AM AIRPLANE TUBE BUILDER) Narrative Procedure Note Teja Griffin MD - 05/10/2024 7:58 AM CST [facility] [address] [place] [address], [address], [place] [address] Patient Name: Douglas Emery Gender: Male Exam Date: 05/10/2024 Visit Number: [id number] Age: 49 Years Date of : 1975 Attending MD: Teja Griffin MD Medical Record#: [id number] Procedure: Colonoscopy Indications: Colorectal cancer screening Referring MD: Referral Self Primary MD: No Primary Medications: Admitting Medications: 0.9% Normal Saline at TKO Intra Procedure Medications: Patient received monitored anesthesia care. Complications: No immediate complications Procedure: An examination of the heart and lungs was performed and found to be within acceptable limits. . The patient was therefore deemed [...] there was a benign-appearing growth originating below the dentate line, suspect hypertrophic anal papilla. Remainder of [...] biopsy. He has a GI doc in [place] as well I said hecould ask, [facility] Results: A: COLON, CECUM, POLYPS: [...] signed by: Uvaldo Caicedo MD Interpreted at [facility], [address] [place] [id number] Orders Instruction(s)/Education: Instruction/Education Timeframe Assessment Colon Cancer [...] Teja Griffin MD 05/10/2024 cc: No Primary Authorizing ProviderResult TypeResult StatusGregshayla Griffin MDOTHERFinal Result * LIPID PANEL W REFLEX MEASURED LDL (06/29/2019 11:00 AM AIRPLANE TUBE BUILDER)ComponentValueRef RangeTest MethodAnalysis TimePerformed AtPathologist Signature CHOLESTEROL,[id number] - 199 mg/dL06/29/2019 10:19 PM [facility] ZRWIJMEGDLAPGOPWBDNUGHB887<150 mg/dL06/29/2019 10:19 PM AIRPLANE TUBE BUILDER [facility]-CENTRAL LABORATORYHDL OEIOTYXTWBF93>40 mg/dL 06/29/2019 10:19 PM [facility] LABORATORYNON-HDL CZWKDSCLFHY11<145 mg/dl06/29/2019 10:19 PM [facility] LABORATORYCHOL/HDL RATIO2.44<4.50006/29/2019 10:19 PM [facility] LABORATORYLDL PTQDMWQNJOP95<=130 mg/dL06/29/2019 10:19 PM [facility] LABORATORYPROVIDER ORDERED STATUSFASTING 06/29/2019 10:19 PM [facility] LABORATORYSpecimen (Source)Anatomical Location / LateralityCollection Method / VolumeCollection TimeReceived TimeBloodBLOOD SPECIMEN / UnknownVenipuncture / Pocdcpi9306/29/2019 11:00 AM CST06/29/2019 11:00 AM AIRPLANE TUBE BUILDER Narrative Authorizing ProviderResult TypeResult StatusTrajami Landin PACHEMISTRY Final ResultPerforming OrganizationAddressCity/State/ZIP CodePhone Number [facility] [address] [place] [address], from Last 3 Months or Most Recently Relevant to Health Maintenance Insurance Advance Directives * Full Code (Latest Code Status on File) Date ActivatedDate UhatxhwxwvuXgnlbrks71/4/2021 1:13 02/12/2021 7:21 PMQuestion AnswerCommentsCode Status Discussion:* Not Discussed Care Teams Team MemberRelationshipSpecialtyStart [place] [address] [place] [address] PCP - GeneralFamily Practice08/24/14
[2025-04-22 18:00] VITALS: BP 161/94; PULSE 82; RESP 20; TEMP 36.6; O2SAT 98; BMI 26.0
--- NOTE | 2025-04-22 19:27 | CRLHL7_ITS ---
For Patients: As a result of the Century Cures Act, medical imaging exams and procedure reports are released immediately into your electronic medical record. You may view this report before your referring provider. If you have questions, please contact your health care provider. INDICATION: Left-sided abdominal pain, history of left-sided urolithiasis. TECHNIQUE: CT abdomen and pelvis without contrast. COMPARISON: April 10, 2025. FINDINGS: Lower chest: Scattered atelectasis. Liver: Normal in size and attenuation. No suspicious masses. Gallbladder and bile ducts: No stones or inflammation. No biliary dilatation. Pancreas: Unremarkable. No mass or inflammation. Spleen: Granulomatous disease. Normal in size. No masses. Adrenal glands: Normal in size. No nodules. Kidneys: Mild left-sided hydroureteronephrosis secondary to 3 millimeter obstructing proximal left ureteral stone in similar position as prior study. Additional bilateral nonobstructing renal stones. GI tract: Small hiatal hernia. Colonic diverticulosis without diverticulitis. Normal in caliber. No sign of mass or inflammation. Normal appendix. Vasculature: Abdominal aorta is normal in caliber. Lymph nodes: No lymphadenopathy. Peritoneum/Abdominal Wall: Unremarkable. No sign of mass or infiltration. No free air or significant free fluid. Pelvis: Prominent prostate gland. No pelvic masses. Bones: Unremarkable for age. IMPRESSION: Mild left-sided hydroureteronephrosis secondary to 3 millimeter obstructing proximal left ureteral stone, in similar position as prior study. Please note that all CT scans at this facility use dose modulation, iterative reconstruction, and/or weight-based dosing when appropriate to reduce radiation dose to as low as reasonably achievable. Dictated by Aidan Garnett MD @ 04/22/2025 7:45:39 PM (Electronically Signed)
--- NOTE | 2025-04-22 19:30 | ED.ABDPAIN ---
HPI - Abdominal Pain General Date Seen: 04/22/25 Chief Complaint: Flank Pain Stated Complaint: Kidney stones, pain Time Seen by Provider: 04/22/25 19:13 Source: patient, RN notes reviewed and old records reviewed Mode of arrival: ambulatory Limitations: no limitations History of Present Illness HPI narrative: patient is a 50-year-old gentleman who has been battling with left-sided urolithiasis for the last couple weeks, please see previous ER notes. He said he was doing pretty well in the last 3 days, he actually went 24 hours with no oxycodone or Toradol for his left-sided discomfort. Said this stone he thinks had moved down. Denies any fevers chills with this, but is nauseous, and did also take ondansetron today he had the worst pain originating in his left flank region with radiation to his left groin. Did not have any hematuria, says his urine is been normal. With no dysuria frequency associated with this. Does have a history of irritable bowel but he says he has had normal bowel movements. Has also been taking his Flomax, did take 1 tablet of Toradol at 3:00 p.m. and then 1 tablet of oxycodone at 5:00 p.m.. History of irritable bowel syndrome, MD elicited complaint: abdominal pain and flank pain Pertinent past history: kidney stones Onset (ago): hour(s) Pain Consistency: constant Location: LUQ and L flank Severity: severe Quality: cramping and stabbing Radiation: LLQ Migration to: no migration Exacerbating factors: nothing Relieving factors: nothing Context: history of similar episodes Associated symptoms: nausea and vomiting Treatments prior to arrival: NSAIDs and prescription analgesics Related Data Home Medications ?Medication ?Instructions ?Recorded ?Confirmed cetirizine 10 mg tablet 10 mg PO DAILY 06/12/22 04/22/25 ketorolac 10 mg tablet 10 mg PO Q6H PRN 04/16/25 04/22/25 Previous Rx's ?Medication ?Instructions ?Recorded ondansetron 4 mg disintegrating 4 mg PO Q12H PRN nausea and 11/17/24 tablet vomiting #60 tabs ondansetron HCl 4 mg tablet 4 mg PO Q8H PRN nausea and 04/10/25 vomiting #10 tabs oxycodone 5 mg tablet 5 - 10 mg (1 - 2 x 5 mg) PO Q4H 04/10/25 PRN pain #14 tabs tamsulosin 0.4 mg capsule (Flomax) 0.4 mg PO DAILY #7 caps 04/10/25 ketorolac 10 mg tablet 10 mg PO Q6H PRN pain #20 tabs 04/16/25 oxycodone 5 mg tablet 5 mg PO Q6H PRN pain #12 tabs 04/16/25 Allergies Allergy/AdvReac Type Severity Reaction Status Date / Time No Known Drug Allergies Allergy Verified 04/22/25 18:00 Review of Systems Status of ROS Reports: 10 or more systems reviewed and unremarkable except as noted in History and below [facility] Medical History Healthcare maintenance ?Z00.00 - Encounter for general adult medical examination without abnormal findings (ICD-10) Healthcare maintenance ?Z00.00 - Encounter for general adult medical examination without abnormal findings (ICD-10) Calculus of kidney ?N20.0 - Calculus of kidney (ICD-10) Irritable bowel ?K58.9 - Irritable bowel syndrome without diarrhea (ICD-10) Social History What is your current living situation?: I presently have a place to live Problems where you live: no known problems In the past 12 months, utilities in danger of being shut off: no In past 12 months, lack of transportation kept you from medical appts, meetings, work, or getting things needed for daily living: no In the past 12 mos, have been you worried that your food would run out before you had money to buy more?: never true In the past 12 mos, the food you bought just didn't last and you didn't have money to buy more?: never true Physical activity type: walking and running How many days of moderate to strenuous exercise, like a brisk walk, did you do in the last 7 days: 7 Smoking Status: Never smoker Do you use any of these nicotine containing products: Vaping Products Second hand tobacco smoke exposure: No How often do you have a drink containing alcohol: monthly or less How many standard drinks containing alcohol do you have on a typical day: 1 or 2 How often do you have six or more drinks on one occasion: Never AUDIT-C Alcohol total score: 1 Non-prescribed substance use: marijuana (any form) Are you now , , , , never or living with a partner: Social isolation score (0-1 are the most socially isolated patients): 1 Within the last year, have you been humiliated or emotionally abused in other ways by your partner or ex-partner: no Within the last year, have you been afraid of your partner or ex-partner: no Within the last year, have you been raped or forced to have any kind of sexual activity by your partner or ex-partner: no Within the last year, have you been kicked, hit, slapped, or otherwise physically hurt by your partner or ex-partner: no HARK total score: 0 How often does anyone, including family, friends and others, physically hurt you: never How often does anyone, including family, friends and others, insult or talk down to you: never How often does anyone, including family, friends and others, threaten you with harm: never How often does anyone, including family, friends and others, scream or curse at you: never Do you think of yourself as: straight/heterosexual Gender Identity: male Are you currently sexually active: Yes Exam Narrative: Exam Narrative: on examination in room 2 I see a nice gentleman but he is in some moderate distress, vital signs are listed and normal except for slightly elevated blood pressure. Pupils equal round reactive to light there is no scleral icterus redness, he does have some eczema noted on his face. There is no lymphadenopathy mouth opening normal TMs are normal cranial nerves 3-12 are normal his chest is good air entry bilaterally no wheezing crackles noted heart sounds are normal I cannot reproduce his pain with pain in her palpation in the left upper quadrant, bowel sounds are normal, there is no hernias noted bilaterally, of the groin all regions. His testicles both descended and normal, he has normal male genitalia, moves extremities independently and well skin was no petechiae or rashes Const: Vital Signs, click to edit/add: Vital Signs - 24 hr 04/22/25 18:00 Temperature 97.8 F Pulse Rate [Pulse Oximeter] 82 Respiratory Rate 20 Blood Pressure [Ri ght Upper Arm] 161/94 H Pulse Oximetry 98 Oxygen Delivery Me thod Room Air Documenting provider has reviewed patient's vital signs: yes Course Vital Signs Vital signs: Initial Vital Signs Temperature 97.8 F 04/22/25 18:00 Temperature Source Temporal Artery Scan 04/22/25 18:00 Pulse Rate 82 04/22/25 18:00 Respiratory Rate 20 04/22/25 18:00 Blood Pressure 161/94 H 04/22/25 18:00 Blood Pressure Mean 116 H 04/22/25 18:00 Pulse Oximetry 98 04/22/25 18:00 Oxygen Delivery Method Room Air 04/22/25 18:00 Vital Signs Temperature 97.8 F 04/22/25 18:00 Pulse Rate 82 04/22/25 18:00 Respiratory Rate 20 04/22/25 18:00 Blood Pressure 161/94 H 04/22/25 18:00 Pulse Oximetry 98 04/22/25 18:00 Oxygen Delivery Method Room Air 04/22/25 18:00 Temperature 97.8 F 04/22/25 18:00 Pulse Rate 82 04/22/25 18:00 Respiratory Rate 20 04/22/25 18:00 Blood Pressure 161/94 H 04/22/25 18:00 Pulse Oximetry 98 04/22/25 18:00 Oxygen Delivery Method Room Air 04/22/25 18:00 Medications Administered Medications: Discontinued Medications Generic Name Dose Route Start Last Admin Trade Name Freq PRN Reason Stop Dose Admin Hydromorphone HCl 0.5 mg 04/22/25 19:26 04/22/25 19:47 Hydromorphone 0.5 Mg/0.5 Ml Inj IVP 04/22/25 19:27 0.5 mg ONCE ONE Administration Sodium Chloride 1,000 mls @ 1,000 mls/hr 04/22/25 19:30 04/22/25 20:46 0.9 % Sodium Chloride 1000 Ml IV 04/22/25 20:29 Infused .Q1H EDITA Infusion Ketorolac Tromethamine 30 mg 04/22/25 20:17 04/22/25 20:32 Ketorolac 30 Mg/Ml Inj IVP 04/22/25 20:18 30 mg ONCE ONE Administration Ondansetron HCl 4 mg 04/22/25 20:09 04/22/25 20:32 Ondansetron 2 Mg/Ml Inj IVP 04/22/25 20:10 4 mg ONCE ONE Administration MDM - Abdominal Pain MDM Narrative Medical decision making narrative: During this evaluation of this patient I considered multiple differential diagnosis is which included the life-threatening such as appendicitis, aortic aneurysm, mesenteric ischemia, bowel perforation, volvulus, and bowel obstruction. Other differential diagnosis is include but are not limited to cholecystitis, pancreatitis, hepatitis, gastritis, GERD, diverticulitis, peptic ulcer disease, pyelonephritis/UTI, renal colic/stone, testicular torsion as well as other acute scrotal processes, inflammatory bowel disease, as well as other etiologies I repeated his CT scan, that showed a stone in the midposition really no change from previous CT. There was hydronephrosis, white count was not elevateds borderline, but he is receiving fluids. Urine did show any evidence of infection, he actually has an appoint with urologist, but he has been fighting with insurance, I recommended that he keep his appointment as they probably will have to do instrumentation to relieve him of the kidney stone, with the ureteric stent, along with likely lithotripsy. I will give a prescription for some more oxycodone, continue the Flomax, return here if inadequate pain control fevers chills sweats or other issues. Medical Records Attestation: I reviewed the patient's medical records. Lab Data Attestation: I reviewed the patient's lab results. Labs: Lab Results 04/22/25 04/22/25 Range/Units 19:42 19:52 WBC 9.35 (4.50-11.00) K/uL RBC 5.55 (4.30-5.90) m/uL Hgb 16.4 (13.5-17.5) gm/dL Hct 48.0 (37.0-53.0) % MCV 87 (80-100) fL MCH 30 (26-34) pg MCHC 34 (32-36) gm/dL RDW Coeff of Yg 11.4 L (11.5-15.5) % Plt Count 229 (140-440) K/uL Neut % (Auto) 84.7 H (42.0-72.0) % Lymph % (Auto) 8.3 L (20-44) % Price % (Auto) 5.9 (0.0-11.0) % Eos % (Auto) 0.3 (0.0-7.0) % Baso % (Auto) 0.5 (0.0-3.0) % Neut # (Auto) 7.90 H (1.7-7.0) K/uL Lymph # (Auto) 0.80 L (0.90-2.90) K/uL Price # (Auto) 0.60 (0.00-0.90) K/UL Eos # (Auto) 0.03 (0.00-0.50) K/uL Baso # (Auto) 0.05 (0.00-0.30) K/uL Abs Immat Gran (auto) 0.03 (0.00-0.30) K/uL Imm/Tot Granulo (auto) 0.3 % Sodium 138 (135-149) mmol/L Potassium 4.4 (3.6-5.1) mmol/L Chloride 103 (96-114) mmol/L Carbon Dioxide 23 (20-32) mmol/L Anion Gap 12 (7-15) mEq/L BUN 18 (7-30) mg/dL Creatinine 1.4 (0.5-1.5) mg/dL Estimated Creat Clear 68.52 Estimated GFR 61 ml/min Glucose 119 H (60-115) mg/dL Lactate 2.0 H (0.5-1.9) mmol/L Calcium 9.5 (8.4-10.6) mg/dL C-Reactive Protein < 0.5 L (0.5-1.0) mg/dL Lipase 322 H (23-300) U/L Urine Color Yellow (Yellow) Urine Appearance Clear (Clear) Urine pH 6.0 (5.0-8.5) Ur Specific Valdez >= 1.030 (1.000-1.030) Urine Protein 2+ A (Negative) Urine Glucose (UA) Negative (Negative) Urine Ketones 2+ A (Negative) Urine Blood 3+ A (Negative) Urine Nitrite Negative (Negative) Urine Bilirubin 1+ A (Negative) Urine Urobilinogen 0.2 (0.2-1.0) Ur Leukocyte Esterase Negative (Negative) Urine RBC 10-25 A (0-2) Urine WBC 2-5 (0-5) Ur Squamous Epith Cells Few (None-Few) Urine Bacteria Few A (None) Urine Mucus Few A (None) Imaging Data CT scan - abdomen: Attestation: I have reviewed the pertinent imaging results. My impression: Moderate hydronephrosis on the left side with a midposition ureteral stone Radiologist's impression: [place] [address] Diagnostic Imaging Report Patient: Douglas Emery MR#: [id number] : 1975 Acct:[id number] Loc: ED Service Date: 04/22/[address]: Ordering Physician: Gregory Keys M.D. Date of Service: 04/22/25 Procedure(s): CT abdomen pelvis wo con Accession Number(s): [id number] cc: Michele Somers M.D.; Gregory Keys M.D.~ For Patients: As a result of the Century Cures Act, medical imaging exams and procedure reports are released immediately into your electronic medical record. You may view this report before your referring provider. If you have questions, please contact your health care provider. INDICATION: Left-sided abdominal pain, history of left-sided urolithiasis. TECHNIQUE: CT abdomen and pelvis without contrast. COMPARISON: April 10, 2025. FINDINGS: Lower chest: Scattered atelectasis. Liver: Normal in size and attenuation. No suspicious masses. Gallbladder and bile ducts: No stones or inflammation. No biliary dilatation. Pancreas: Unremarkable. No mass or inflammation. Spleen: Granulomatous disease. Normal in size. No masses. Adrenal glands: Normal in size. No nodules. Kidneys: Mild left-sided hydroureteronephrosis secondary to 3 millimeter obstructing proximal left ureteral stone in similar position as prior study. Additional bilateral nonobstructing renal stones. GI tract: Small hiatal hernia. Colonic diverticulosis without diverticulitis. Normal in caliber. No sign of mass or inflammation. Normal appendix. Vasculature: Abdominal aorta is normal in caliber. Lymph nodes: No lymphadenopathy. Peritoneum/Abdominal Wall: Unremarkable. No sign of mass or infiltration. No free air or significant free fluid. Pelvis: Prominent prostate gland. No pelvic masses. Bones: Unremarkable for age. IMPRESSION: Mild left-sided hydroureteronephrosis secondary to 3 millimeter obstructing proximal left ureteral stone, in similar position as prior study. Please note that all CT scans at this facility use dose modulation, iterative reconstruction, and/or weight-based dosing when appropriate to reduce radiation dose to as low as reasonably achievable. Dictated by Aidan Garnett MD @ 04/22/2025 7:45:39 PM (Electronically Signed) Discharge Plan Discharge Clinical Impression: Renal colic on left side, Kidney stone on left side, Calculus of kidney Patient Disposition: Home w/ Parent or Adult Condition: Improved Instructions: Kidney Stones (ED), Renal Colic (ED), How to Strain Your Urine (ED), Hydronephrosis (ED), Lithotripsy (DC) Additional Instructions: Home rest use of medications as directed, I have given you a slightly increased supply of oxycodone, follow-up with urology return here if pain is out of control, increased fevers chills sweats nausea vomiting. Activity Level: Light activity Discharge Diet: Regular Prescriptions: No Action cetirizine 10 mg tablet 10 mg PO DAILY ondansetron 4 mg tablet,disintegrating 4 mg PO Q12H PRN (Reason: nausea and vomiting) Qty: 60 3RF Rx Instructions: No ODT. Dispense only the po swallowed. oxycodone 5 mg tablet 5 - 10 mg PO Q4H PRN (Reason: pain) Qty: 14 0RF Patient Comments: out of medication ondansetron HCl 4 mg tablet 4 mg PO Q8H PRN (Reason: nausea and vomiting) Qty: 10 0RF tamsulosin [Flomax] 0.4 mg capsule 0.4 mg PO DAILY Qty: 7 2RF ketorolac 10 mg tablet 10 mg PO Q6H PRN Patient Comments: out of this med and would like more ketorolac 10 mg tablet 10 mg PO Q6H PRN (Reason: pain) Qty: 20 0RF Rx Instructions: maximum total duration of 5 days from all oral, intranasal, or parenteral formulations oxycodone 5 mg tablet 5 mg PO Q6H PRN (Reason: pain) Qty: 12 0RF Follow Up/Referrals: Michele Somers MD [Primary Care Provider, Internal Medicine] Stand Alone Forms: [facility] Info Instructions
[2025-04-22 19:48] LABS: Appearance Urine Clear (Clear)
[2025-04-22 19:53] VITALS: BP 151/124; PULSE 64; RESP 20; O2SAT 96
[2025-04-22 19:59] LABS: Lactate* 2.0 mmol/L (0.5-1.9)
[2025-04-22 20:01] VITALS: BP 164/93; PULSE 64; RESP 20; O2SAT 97
[2025-04-22 20:02] LABS: Hematocrit* 48.0 % (37.0-53.0); Hemoglobin* 16.4 gm/dL (13.5-17.5); Immature Granulocytes Abs Auto 0.03 K/uL (0.00-0.30); Immature Granulocytes Pct Auto 0.3 %; Lymphocytes Absolute Auto 0.80 K/uL (0.90-2.90); Mean Corpuscular HGB Conc 34 gm/dL (32-36); Mean Corpuscular Hemoglobin 30 pg (26-34); Mean Corpuscular Volume 87 fL (80-100); RDW Coefficient of Variation % 11.4 % (11.5-15.5); Red Blood Count* 5.55 m/uL (4.30-5.90); Slide Review Reflex No; White Blood Count* 9.35 K/uL (4.50-11.00)
[2025-04-22 20:15] LABS: Chloride* 103 mmol/L (96-114); Potassium* 4.4 mmol/L (3.6-5.1); Sodium* 138 mmol/L (135-149)
[2025-04-22 20:18] LABS: Anion Gap 12 mEq/L (7-15); Blood Urea Nitrogen* 18 mg/dL (7-30); Carbon Dioxide* 23 mmol/L (20-32); Creatinine* 1.4 mg/dL (0.5-1.5); Est. Creatinine Clearance* 68.52; Estimated Glomerular Filt Rate 61 ml/min
[2025-04-22 20:19] LABS: Calcium* 9.5 mg/dL (8.4-10.6); Glucose* 119 mg/dL (60-115)
[2025-04-22 20:32] VITALS: BP 158/91; PULSE 59; O2SAT 97
[2025-04-22] MEDS: ONDANSETRON 2 MG/ML inj 4 MG IVP (20:32)
[2025-04-22 21:01] VITALS: BP 151/87; PULSE 57; RESP 19; O2SAT 94
== END 2025-04-22 21:47 | disposition home or self-care (01) ==
PROVIDERS: Emergency Provider Family Medicine; PCP Internal Medicine
DX: N23 Unspecified renal colic (principal); N20.0 Calculus of kidney
CPT/HCPCS: 36415; 74176; 80048; 81001; 83605; 83690; 85025; 86140; 87086; 96374; 96375; 99284; J1171; J1885; J2405; J7030